=== PATIENT | female | born 1950 | race Caucasian/White ===

== ENCOUNTER → 2017-10-07 | Outpatient (CLI) | payer MEDICARE ==
--- NOTE | 2017-10-07 23:21 | MR ---
EXAMINATION TYPE: MR lumbar spine wo/w con DATE OF EXAM: 10/07/2017 COMPARISON: 06/27/2012 HISTORY: Radiculopathy, lumbar region, Pain Bilateral Legs, Gadavist 10ml TECHNIQUE: Multiplanar, multisequence images of the lumbar spine were acquired utilizing 10 mL intravenous Gadav ist gadolinium contrast. The lumbar vertebra have fairly normal spacing and alignment for age. There is a few millimeter anter ior subluxation of L4 in relation L5. There is mild hypertrophic facet arthropathy at L4-5. The neura l foramina appear normal. There is no spinal stenosis. There is no paraspinal mass. The posterior davy ments appear intact. Sacroiliac joints appear normal. I see no pathologic enhancement. There is small posterior disc bulge at L5-S1 without impingement on the spinal canal. IMPRESSION: Essentially negative MR scan of the lumbar spine. Minimal facet arthropathy at L4-5. I do not see a c ause for radiculopathy.
== END | disposition home or self-care (01) ==
LOC: RADMRIMAIN 17:19
PROVIDERS: ATTEND Psychiatry & Neurology Neurology
DX: M46.96 Unspecified inflammatory spondylopathy, lumbar region (principal)
CPT/HCPCS: 82565; 72158; 36415; A9581

== ENCOUNTER → 2020-01-04 | Outpatient (CLI) | payer MEDICARE ==
--- NOTE | 2020-01-05 08:56 | MM ---
Reason for exam: screening (asymptomatic). History: Patient is postmenopausal. Took hormonal contraceptives for 10 years. Physical Findings: A clinical breast exam by your physician is recommended on an annual basis and results should be correlated with mammographic findings. MG 3D Screening Mammo W/Cad Bilateral CC and MLO view(s) were taken. There are scattered fibroglandular densities. Finding: There are 3 mm equal density (isodense), oval masses in both breasts, right upper outer quadrant and left inner quadrant. Benign calcifications. ASSESSMENT: Incomplete: need additional imaging evaluation, BI-RAD 0 RECOMMENDATION: Ultrasound of both breasts. [facility] will attempt to contact patient to return for ultrasound.
== END | disposition home or self-care (01) ==
LOC: RADMAMWWP 09:40
PROVIDERS: ATTEND Family Medicine
DX: Z12.31 Encounter for screening mammogram for malignant neoplasm of breast (principal)
CPT/HCPCS: 77063; 77067

== ENCOUNTER → 2020-01-17 | Outpatient (CLI) | payer MEDICARE ==
--- NOTE | 2020-01-17 10:29 | USB ---
Reason for exam: additional evaluation requested from abnormal screening. History: Patient is postmenopausal. Took hormonal contraceptives for 10 years. Physical Findings: Nurse did not find any significant physical abnormalities on exam. US Breast Workup Limited GUILLERMO Right limited breast ultrasound including focal area of concern, retroareolar and axilla demonstrates a 3 x 2 x 3mm oval, cystic lesion at 10 o'clock. Left limited breast ultrasound including focal area of concern, retroareolar and axilla demonstrates a 3 x 2 x 3mm oval, cystic lesion at 8 o'clock. These results were verbally communicated with the patient and result sheet given to the patient on 01/17/20. ASSESSMENT: Benign, BI-RAD 2 RECOMMENDATION: Return to routine screening mammogram schedule for both breasts.
== END | disposition home or self-care (01) ==
LOC: RADUSWWP 09:31
PROVIDERS: ATTEND Family Medicine
DX: R92.8 Other abnormal and inconclusive findings on diagnostic imaging of breast (principal)

== ENCOUNTER → 2020-03-05 | Outpatient (CLI) | payer MEDICARE ==
--- NOTE | 2020-03-06 11:11 | ECHOF ---
Referral Reason:M79.89 soft tissue disorder MEASUREMENTS -------- HEIGHT: 160.0 cm WEIGHT: 102.1 kg BP: RVIDd: 3.2 cm (< 3.3) IVSd: 0.8 cm (0.6 - 1.1) LVIDd: 4.8 cm (3.9 - 5.3) LVPWd: 1.1 cm (0.6 - 1.1) IVSs: 1.1 cm LVIDs: 2.6 cm LVPWs: 1.6 cm LA Diam: 3.7 cm (2.7 - 3.8) LAESV Index (A-L): 21.53 ml/m Ao Diam: 2.4 cm (2.0 - 3.7) AV Cusp: 1.5 cm (1.5 - 2.6) LA Diam: 3.9 cm (2.7 - 3.8) MV EXCURSION: 9.371 mm (> 18.000) MV EF SLOPE: 63 mm/s (70 - 150) EPSS: 0.3 cm MV E Oleg: 0.65 m/s MV DecT: 209 ms MV A Oleg: 0.65 m/s MV E/A Ratio: 0.99 RAP: 5.00 mmHg RVSP: 24.94 mmHg FINDINGS -------- Sinus rhythm. This was a technically good study. LV size, wall thickness and systolic function are normal, with an EF greater than 55%. The left erick tricular size is normal. The right ventricle is normal in size. The left atrial size is normal. The right atrial size is normal. The aortic valve is trileaflet, and appears structurally normal. No aortic stenosis or regurgitation. Mild mitral regurgitation is present. Mild tricuspid regurgitation present. Right ventricular systolic pressure is normal at < 35 mmHg. There is no pulmonic regurgitation present. The aortic root size is normal. There is no pericardial effusion. CONCLUSIONS -------- 1. LV size, wall thickness and systolic function are normal, with an EF greater than 55%. 2. The left ventricular size is normal. 3. The right ventricle is normal in size. 4. The left atrial size is normal. 5. The right atrial size is normal. 6. Mild mitral regurgitation is present. 7. Mild tricuspid regurgitation present. 8. There is no pulmonic regurgitation present. 9. The aortic root size is normal. 10. There is no pericardial effusion. CORRUGATOR SUPERVISOR: Ijeoma Soriano RDCS
== END | disposition home or self-care (01) ==
LOC: RADECHMAIN 13:35
PROVIDERS: ATTEND Nurse Practitioner Family
DX: I08.1 Rheumatic disorders of both mitral and tricuspid valves (principal)
CPT/HCPCS: 93306

== ENCOUNTER → 2022-10-22 | Outpatient (CLI) | payer MEDICARE | END | disposition home or self-care (01) | LOC: LABWHC1 10:19 | PROVIDERS: ATTEND Urology | DX: Z53.9 Procedure and treatment not carried out, unspecified reason (principal) ==

== ENCOUNTER 2022-10-29 08:01 | Day surgery (SDC) | payer MEDICARE ==
--- NOTE | 2022-10-28 19:02 | P.GSHP ---
History of Present Illness H&P Date: 10/28/22 Chief Complaint: Gross hematuria The patient is a 72-year-old white female with a history of urolithiasis 15 years ago. She experienced gross hematuria in August 2022. Computed tomography scan shows a 17 mm right renal pelvic calculus, with no hydronephrosis. This is presumed to be the source of the hematuria. She denies any prior history of UTIs. - Cardiovascular Cardiovascular: Reports high blood pressure - Genitourinary (Female) Genitourinary: Reports hematuria, Reports kidney stones, Denies dysuria, Denies flank pain Past Medical History Past Medical History: Atrial Fibrillation, Hyperlipidemia, Hypertension Additional Past Medical History / Comment(s): kidney stones History of Any Multi-Drug Resistant Organisms: None Reported Past Surgical History: Appendectomy, Back Surgery, Tubal Ligation Additional Past Surgical History / Comment(s): NASAL SURGERY, Past Anesthesia/Blood Transfusion Reactions: No Reported Reaction Additional Past Anesthesia/Blood Transfusion Reaction / Comment(s): no blood tx hx Smoking Status: Current every day smoker - Past Family History Mother Family Medical History: No Reported History Medications and Allergies Home Medications Medication Instructions Recorded Confirmed Type Acetaminophen Tab [Tylenol Tab] 650 mg PO Q6H PRN 02/19/16 10/26/22 History Apixaban [Eliquis] 5 mg PO BID 10/26/22 10/26/22 History Atorvastatin [Lipitor] 40 mg PO HS 10/26/22 10/26/22 History Calcium(Unk) 1 tab PO DAILY 10/26/22 10/26/22 History Metoprolol Tartrate 25 mg PO DAILY 10/26/22 10/26/22 History Valsartan/Hydrochlorothiazide 1 each PO DAILY 10/26/22 10/26/22 History [Valsartan-Hctz 320-25 mg Tab] Vit D(Unk) 1 tab PO DAILY 10/26/22 History Zinc(Unk) 1 tab PO DAILY 10/26/22 History Allergies Allergy/AdvReac Type Severity Reaction Status Date / Time azithromycin Allergy Swelling Verified 10/26/22 15:27 [From Zithromax Z-Maciel] Penicillins Allergy Swelling Verified 10/26/22 15:27 OF TONGUE Surgical - Exam - General well developed, well nourished, no distress - Respiratory normal respiratory effort - Abdomen Abdomen: soft, non tender, no guarding, no rigid, no rebound - Psychiatric oriented to time, oriented to person, oriented to place, speech is normal, memory intact Results - Imaging CT scan - abdomen: report reviewed, image reviewed Assessment and Plan Assessment: It is presumed that the renal pelvic calculus is the source of the patient's hematuria. She was offered the options of observation, extracorporal shockwave lithotripsy (ESWL), percutaneous nephrolithotomy (PCNL), and ureteroscopy with laser lithotripsy. The pros, cons, and risks of each were discussed in detail. (1) Calculus of kidney Status: Acute Code(s): N20.0 - CALCULUS OF KIDNEY SNOMED Code(s): 53049516 Plan: The patient has elected to undergo cystoscopy, right ureteroscopy with holmium laser lithotripsy, right ureteral stent insertion. She is aware that she will almost certainly require a secondary procedure given the stone burden. She understands risks to include anesthesia, bleeding, infection, and ureteral injury.
[~2022-10-29 08:01] MED LIST: DEXAMETHASONE SOD PHOSPHATE 4 MG/ML 1 ML VIAL IV ONE; HYDROmorphone 0.5 MG/0.5 ML SYRINGE IVP PRN; LACTATED RINGERS 1,000 ML IV SCH; ONDANSETRON 4 MG/2 ML VIAL IVP ONE
[2022-10-29 08:39] VITALS: TEMP 97.3
[2022-10-29 09:02] LABS: Glucose,Whole Blood 125 mg/dL (70-110)
--- NOTE | 2022-10-29 09:10 | XR ---
EXAMINATION TYPE: XR KUB DATE OF EXAM: 10/29/2022 COMPARISON: NONE HISTORY: Pain TECHNIQUE: One view abdominal series FINDINGS: The osseous structures are intact. The bowel gas pattern is nonspecific. Left kidney: No suspicious calcification. Right kidney: There is a 1.9 cm right renal pelvic calcification. Pelvis: Calcifications in the pelvis are nonspecific but likely vascular. There is osteitis pubis exa ms. Atherosclerotic change aorta and degenerative changes. IMPRESSION: 1. There is a 1.9 cm right renal pelvic calculus.
[2022-10-29] MEDS ORDERED: LIDOCAINE 2% INJ 20 MG/ML (2 ML VIAL) ONE (12:02)
[2022-10-29] MEDS ORDERED: PROPOFOL 10 MG/ML 20 ML VIAL IV ONE (12:02)
[2022-10-29] MEDS ORDERED: fentaNYL (PF) 50 MCG/ML 2 ML AMP ONE (12:02)
[2022-10-29] MEDS ORDERED: MIDAZOLAM 2 MG/2 ML VIAL ONE (12:02)
[2022-10-29] MEDS ORDERED: SUCCINYLCHOLINE CHLORIDE 200 MG/10 ML VIAL IV ONE (12:02)
--- NOTE | 2022-10-29 13:45 | FL ---
EXAMINATION TYPE: FL guidance operating room DATE OF EXAM: 10/29/2022 HISTORY: Fluoroscopy time Total dose area product (DAP) in uGy*m?, mGy*cm? (or similar): 4.1946 IMPRESSION: 1. Fluoroscopy time.
[2022-10-29 15:04] VITALS: RESP 18
[2022-10-29 15:26] VITALS: PULSE 55
[2022-10-29 15:27] VITALS: BP 163/75
--- NOTE | 2022-10-29 22:11 | P.OP ---
Date of Procedure: 10/29/22 Preoperative Diagnosis: Right renal calculus Postoperative Diagnosis: Same Procedure(s) Performed: Cystoscopy, right ureteroscopy with Holmium laser lithotripsy, right ureteral stent insertion Anesthesia: SOPHIEA Surgeon: Jose Carlos Brooke Estimated Blood Loss (ml): 10 IV fluids (ml): 600 Pathology: none sent Condition: stable Disposition: PACU Indications for Procedure: The patient is a 72-year-old white female with a history of urolithiasis 15 years ago. She experienced gross hematuria in August 2022. CT scan shows a 17 mm right renal pelvic calculus, with no hydronephrosis. This is presumed to be the source of the hematuria. She denies any prior history of UTIs. Operative Findings: Right renal pelvic calculus, fragmented completely. Description of Procedure: The patient was taken to the operating room and placed in the dorsolithotomy position, with legs supported in Ulysses stirrups. The external genitalia was prepped and draped sterilely. The 30 lens was used to introduce the 21-Guyanese Lawson cystoscopic sheath through the urethra and into the bladder under direct vision. The bladder was examined in its entirety. Both ureteral orifices were normal anatomic location and configuration, and clear urine effluxed from both. No tumors or foreign bodies were seen. A 0.038 inch Glidewire was passed through the cystoscope. The ureteral orifice was cannulated, and the Glidewire was advanced up to the renal pelvis. The cystoscope was removed, and an 11/13- Guyanese ureteral access catheter was passed over the wire, up to the proximal ureter. The Gipson Cobra flexible ureteroscope was then passed through the ureteral access catheter sheath, up to the renal pelvis where the calculus was seen. The 272 micron Holmium laser probe was passed through the ureteroscope, and lithotripsy was performed using a dusting mode. This was continued until there were no calculus fragments exceeding 1 mm in size, and none seen on fluoroscopy. The ureteroscope was withdrawn. The Glidewire was passed through the ureteral access catheter sheath, which was removed. The Glidewire was backloaded into the cystoscope, which was replaced into the bladder. A 22 cm, 6-Guyanese double-J ureteral stent was placed over the wire. Proper stent positioning was verified fluoroscopically and endoscopically. The bladder was emptied and the cystoscope removed. The patient tolerated the procedure well and was taken to the recovery room in stable condition. DAVID HI Report: Procedure Acuity: Elective Stone Size and Location: 17 mm, right renal pelvis Ureteral Dilation: No Ureteral Access Sheath Used: Yes Stone Sent for Analysis: No All Stones/Fragments Were Removed with a Basket: No Complications: No Preoperative Antibiotics Given: Yes Stent Placed: Yes If Stent Placed, Was String Left Attached: No If Stent Placed, When is it to be Removed: 2 weeks Discharge Medications: Tolterodine
== END 2022-10-29 15:35 | disposition home or self-care (01) ==
LOC: OR 08:01
PROVIDERS: ATTEND Urology
DX: N20.0 Calculus of kidney (principal); I48.91 Unspecified atrial fibrillation; I10 Essential (primary) hypertension; E78.5 Hyperlipidemia, unspecified; F17.210 Nicotine dependence, cigarettes, uncomplicated; K21.9 Gastro-esophageal reflux disease without esophagitis; Z79.01 Long term (current) use of anticoagulants; Z79.899 Other long term (current) drug therapy; Z88.0 Allergy status to penicillin; Z88.1 Allergy status to other antibiotic agents
CPT/HCPCS: 74018; 52356; C1758 ×3; C1769; C1894; J2250; J0330; J1100; J0690; J2405; J3010; J2704; J2001

== ENCOUNTER 2022-10-31 10:43 | Inpatient (IN) | payer MEDICARE ==
[2022-10-31] MEDS ORDERED: SODIUM CHLORIDE 0.9% 500 ML 500 ML IV STA (11:58)
[2022-10-31] MEDS ORDERED: DILTIAZEM DRIP BOLUS FROM BAG 1 MG SOLN IV ONE (11:59)
--- NOTE | 2022-10-31 12:04 | ED ---
General Adult HPI - General Chief complaint: Arrhythmia/Palpitations Stated complaint: post op comp Time Seen by Provider: 10/31/22 11:10 Source: patient, RN notes reviewed, old records reviewed Mode of arrival: wheelchair Limitations: no limitations - History of Present Illness Initial comments: This is a 72-year-old m female nick presents emergency Department complaining that she has a history of atrial fibrillation and felt as though her heart is ra cing today. Patient states recently she had a stone lithotripsy and she's been having some back pain and some slight abdominal pain and she states that may have got her heart rate racing but now she is comfortable and still has a little bit of suprapubic discomfort but not bad. Patient states she feels as though her heart still racing and she was somewhat short of breath earlier today. Patient denies any chest pain patient denies any recent fever chills. Patient denies any lightheadedness or dizziness - Related Data Home Medications Medication Instructions Recorded Confirmed Acetaminophen Tab [Tylenol Tab] 650 mg PO Q6H PRN 02/19/16 10/29/22 Apixaban [Eliquis] 5 mg PO BID 10/26/22 10/29/22 Atorvastatin [Lipitor] 40 mg PO HS 10/26/22 10/29/22 Calcium(Unk) 1 tab PO DAILY 10/26/22 10/29/22 Metoprolol Tartrate 25 mg PO DAILY 10/26/22 10/29/22 Valsartan/Hydrochlorothiazide 1 each PO DAILY 10/26/22 10/29/22 [Valsartan-Hctz 320-25 mg Tab] Vit D(Unk) 1 tab PO DAILY 10/26/22 10/29/22 Zinc(Unk) 1 tab PO DAILY 10/26/22 10/29/22 Previous Rx's Medication Instructions Recorded Tolterodine ER [Detrol LA] 4 mg PO DAILY #30 cap 10/29/22 Allergies Allergy/AdvReac Type Severity Reaction Status Date / Time azithromycin Allergy Swelling Verified 10/29/22 08:27 [From Zithromax Z-Maciel] Penicillins Allergy Swelling Verified 10/29/22 08:27 OF TONGUE Review of Systems ROS Statement: Those systems with pertinent positive or pertinent negative responses have been documented in the HPI. ROS Other: All systems not noted in ROS Statement are negative. Past Medical History Past Medical History: Atrial Fibrillation, Hyperlipidemia, Hypertension Additional Past Medical History / Comment(s): kidney stones History of Any Multi-Drug Resistant Organisms: None Reported Past Surgical History: Appendectomy, Back Surgery, Tubal Ligation Additional Past Surgical History / Comment(s): NASAL SURGERY, Past Anesthesia/Blood Transfusion Reactions: No Reported Reaction Past Psychological History: No Psychological Hx Reported Past Alcohol Use History: Rare Past Drug Use History: None Reported - Past Family History Mother Family Medical History: No Reported History General Exam - General Exam Comments Initial Comments: GENERAL: Patient is well-developed and well-nourished. Patient is nontoxic and well- hydrated and is in mild distress. ENT: Neck is soft and supple. No significant lymphadenopathy is noted. Oropharynx is clear. Moist mucous membranes. Neck has full range of motion without eliciting any pain. EYES: The sclera were anicteric and conjunctiva were pink and moist. Extraocular movements were intact and pupils were equal round and reactive to light. Eyelids were unremarkable. PULMONARY: Unlabored respirations. Good breath sounds bilaterally. No audible rales rhonchi or wheezing was noted. CARDIOVASCULAR: Patient is tachycardic to 140 beats a minute and it is a regular ABDOMEN: Soft and nontender with normal bowel sounds. SKIN: Skin is clear with no lesions or rashes and otherwise unremarkable. NEUROLOGIC: Patient is alert and oriented x3. Cranial nerves II through XII are grossly intact. Motor and sensory are also intact. Normal speech, volume and content. Symmetrical smile. MUSCULOSKELETAL: Normal extremities with adequate strength and full range of motion. LYMPHATICS: No significant lymphadenopathy is noted PSYCHIATRIC: Normal psychiatric evaluation. Limitations: no limitations Course Vital Signs 10/31/22 10/31/22 11:09 13:05 Temperature 97.8 F Pulse Rate 139 H 128 H Respiratory 20 20 Rate Blood Pressure 139/96 100/58 O2 Sat by Pulse 95 99 Oximetry Medical Decision Making - Medical Decision Making EKG as interpreted by myself shows atrial fibrillation with rapid ventricular response at 135 bpm QRS is 90 QT interval is 281 QTC is 360. Patient's EKG shows no ST segment elevation or depression. Was pt. sent in by a medical professional or institution (, PA, OWNER PROFESSIONAL ENGINEER, urgent care, hospital, or longterm...) When possible be specific @ -No Did you speak to anyone other than the patient for history (EMS, parent, family, police, friend...)? What history was obtained from this source @ -No Did you review nursing and triage notes (agree or disagree)? Why? @ -I reviewed and agree with nursing and triage notes Were old charts reviewed (outside hosp., previous admission, EMS record, old EKG, old radiological studies, urgent care reports/EKG's, longterm records)? Report findings @ -Prior lab work from prior radiological studies Differential Diagnosis (chest pain, altered mental status, abdominal pain women, abdominal pain men, vaginal bleeding, weakness, fever, dyspnea, syncope, headache, dizziness, GI bleed, back pain, seizure, CVA, palpatations, mental health, musculoskeletal)? @ -Differential Palpitations Ventricular arrhythmias, atrial arrhythmias, myocardial infarction, anemia, thyrotoxicosis, electrolyte imbalance, hypokalemia, pulmonary embolism, pulmonary disease, drugs, alcohol, anxiety, stress.... This is not meant to be an all-inclusive list. EKG interpreted by me (3pts min.). @ -As above X-rays interpreted by me (1pt min.). @ -Chest x-ray shows no acute abnormality CT interpreted by me (1pt min.). @ -None done U/S interpreted by me (1pt. min.). @ -None done What testing was considered but not performed or refused? (CT, X-rays, U/S, labs)? Why? @ -None What meds were considered but not given or refused? Why? @ -None Did you discuss the management of the patient with other professionals (professionals i.e. , PA, OWNER PROFESSIONAL ENGINEER, lab, RT, psych nurse, social media specialist, polymer specialist, teacher, chief innovation officer, home health care case manager)? Give summary @ -[facility] I spoke with Dr. Brooke and he agreed to be on consult for this patient. Was smoking cessation discussed for >3mins.? @ -No Was critical care preformed (if so, how long)? @ -35 minutes Were there social determinants of health that impacted care today? How? (Homelessness, low income, unemployed, alcoholism, drug addiction, tr ansportation, low edu. Level, literacy, decrease access to med. care, assisted, rehab)? @ -No Was there de-escalation of care discussed even if they declined (Discuss DNR or withdrawal of care, Hospice)? DNR status @ -No What co-morbidities impacted this encounter? (DM, HTN, Smoking, COPD, CAD, Cancer, CVA, ARF, Chemo, Hep., AIDS, mental health diagnosis, sleep apnea, morbid obesity)? @ -None Was patient admitted / discharged? Hospital course, mention meds given and route, prescriptions, significant lab abnormalities, going to OR and other pertinent info. @ -Because the patient had a high white count and a recent procedure started the patient on Levaquin Dr. Brooke is in agreement with that. Patient was in A. fib RVR so I started the patient a Cardizem and she was ordered at all it was no blood thinners due to be added. At this point time I spoke with [facility] see agreed to admit the patient admitted the patient wrote admitting orders Undiagnosed new problem with uncertain prognosis? @ -No Drug Therapy requiring intensive monitoring for toxicity (Heparin, Nitro, Insulin, Cardizem)? @ -No Were any procedures done? @ -No Diagnosis/symptom? @ -A. fib with rapid ventricular response Acute, or Chronic, or Acute on Chronic? @ -Acute Uncomplicated (without systemic symptoms) or Complicated (systemic symptoms)? @ -Complicated Side effects of treatment? @ -No Exacerbation, Progression, or Severe Exacerbation? @ -No Poses a threat to life or bodily function? How? (Chest pain, [place], [place], pneumonia, PE, COPD, DKA, ARF, appy, cholecystitis, CVA, Diverticulitis, Homicidal, Suicidal, threat to staff... and all critical care pts) @ -Yes this could lead to poor perfusion and end organ dysfunction Diagnosis/symptom? @ -Urinary tract infection post procedure Acute, or Chronic, or Acute on Chronic? @ -Acute Uncomplicated (without systemic symptoms) or Complicated (systemic symptoms)? @ -Complicated Side effects of treatment? @ -none Exacerbation, Progression, or Severe Exacerbation] @ -No Poses a threat to life or bodily function? @ -Yes This could lead to sepsis and could lead to morbidity or mortality - Lab Data Result diagrams: 10/31/22 12:01 10/31/22 12:01 Lab Results 10/31/22 10/31/22 10/31/22 Range/Units 12:01 12:01 12:01 WBC 19.4 H (3.8-10.6) k/uL RBC 4.78 (3.80-5.40) m/uL Hgb 13.5 (11.4-16.0) gm/dL Hct 40.7 (34.0-46.0) % MCV 85.1 (80.0-100.0) fL MCH 28.2 (25.0-35.0) pg MCHC 33.1 (31.0-37.0) g/dL RDW 14.0 (11.5-15.5) % Plt Count 173 (150-450) k/uL MPV 11.0 Neutrophils % 89 % Lymphocytes % 3 % Monocytes % 6 % Eosinophils % 0 % Basophils % 0 % Neutrophils # 17.4 H (1.3-7.7) k/uL Lymphocytes # 0.6 L (1.0-4.8) k/uL Monocytes # 1.2 H (0-1.0) k/uL Eosinophils # 0.0 (0-0.7) k/uL Basophils # 0.0 (0-0.2) k/uL PT 10.8 (9.0-12.0) sec INR 1.0 (<1.2) APTT 25.1 (22.0-30.0) sec Sodium 134 L (137-145) mmol/L Potassium 4.0 (3.5-5.1) mmol/L Chloride 103 (98-107) mmol/L Carbon Dioxide 21 L (22-30) mmol/L Anion Gap 10 mmol/L BUN 20 H (7-17) mg/dL Creatinine 0.86 (0.52-1.04) mg/dL Est GFR (CKD-EPI)AfAm 80 (>60 ml/min/1.73 sqM) Est GFR (CKD-EPI)NonAf 69 (>60 ml/min/1.73 sqM) Glucose 157 H (74-99) mg/dL Calcium 8.8 (8.4-10.2) mg/dL Magnesium 1.8 (1.6-2.3) mg/dL Total Bilirubin 1.3 (0.2-1.3) mg/dL AST 34 (14-36) U/L ALT 23 (4-34) U/L Alkaline Phosphatase 83 (38-126) U/L Troponin I (0.000-0.034) ng/mL Total Protein 6.3 (6.3-8.2) g/dL Albumin 3.7 (3.5-5.0) g/dL TSH 1.350 (0.465-4.680) mIU/L Urine Appearance (Clear) Urine RBC (0-5) /hpf Urine WBC (0-5) /hpf 10/31/22 10/31/22 Range/Units 12:01 13:28 WBC (3.8-10.6) k/uL RBC (3.80-5.40) m/uL Hgb (11.4-16.0) gm/dL Hct (34.0-46.0) % MCV (80.0-100.0) fL MCH (25.0-35.0) pg MCHC (31.0-37.0) g/dL RDW (11.5-15.5) % Plt Count (150-450) k/uL MPV Neutrophils % % Lymphocytes % % Monocytes % % Eosinophils % % Basophils % % Neutrophils # (1.3-7.7) k/uL Lymphocytes # (1.0-4.8) k/uL Monocytes # (0-1.0) k/uL Eosinophils # (0-0.7) k/uL Basophils # (0-0.2) k/uL PT (9.0-12.0) sec INR (<1.2) APTT (22.0-30.0) sec Sodium (137-145) mmol/L Potassium (3.5-5.1) mmol/L Chloride (98-107) mmol/L Carbon Dioxide (22-30) mmol/L Anion Gap mmol/L BUN (7-17) mg/dL Creatinine (0.52-1.04) mg/dL Est GFR (CKD-EPI)AfAm (>60 ml/min/1.73 sqM) Est GFR (CKD-EPI)NonAf (>60 ml/min/1.73 sqM) Glucose (74-99) mg/dL Calcium (8.4-10.2) mg/dL Magnesium (1.6-2.3) mg/dL Total Bilirubin (0.2-1.3) mg/dL AST (14-36) U/L ALT (4-34) U/L Alkaline Phosphatase (38-126) U/L Troponin I <0.012 (0.000-0.034) ng/mL Total Protein (6.3-8.2) g/dL Albumin (3.5-5.0) g/dL TSH (0.465-4.680) mIU/L Urine Appearance Bloody H (Clear) Urine RBC >182 H (0-5) /hpf Urine WBC 87 H (0-5) /hpf Disposition Clinical Impression: Urinary tract infection, Atrial fibrillation with rapid ventricular response Disposition: ADMITTED IP TO THIS HOSP Referrals: Oliver Roper MD [Primary Care Provider] - 1-2 days Time of Disposition: 14:13
[2022-10-31] MEDS: DILTIAZEM 125 MG in SODIUM CHLORIDE 0.9% 100 ML IV SCH ×2 (12:10→12:11)
[2022-10-31 12:18] LABS: Basophils % (A) 0 %; Eosinophils % (A) 0 %; HCT 40.7 % (34.0-46.0); HGB 13.5 gm/dL (11.4-16.0); Lymphocytes # (A) 0.6 k/uL (1.0-4.8); Lymphocytes % (A) 3 %; MCH 28.2 pg (25.0-35.0); MCHC 33.1 g/dL (31.0-37.0); MCV 85.1 fL (80.0-100.0); Monocytes # (A) 1.2 k/uL (0-1.0); Monocytes % (A) 6 %; Neutrophils # (A) 17.4 k/uL (1.3-7.7); Neutrophils % (A) 89 %; Platelet Count 173 k/uL (150-450); RBC 4.78 m/uL (3.80-5.40); WBC 19.4 k/uL (3.8-10.6)
[2022-10-31 12:27] LABS: ALT 23 U/L (4-34); AST 34 U/L (14-36); African American GFR (CKD) 80 (>60 ml/min/1.73 sqM); Albumin 3.7 g/dL (3.5-5.0); Alkaline Phosphatase 83 U/L (38-126); Anion Gap 10 mmol/L; Blood Urea Nitrogen 20 mg/dL (7-17); Calcium 8.8 mg/dL (8.4-10.2); Carbon Dioxide 21 mmol/L (22-30); Chloride 103 mmol/L (98-107); Glucose 157 mg/dL (74-99); Magnesium 1.8 mg/dL (1.6-2.3); Non-African American GFR(CKD) 69 (>60 ml/min/1.73 sqM); Sodium 134 mmol/L (137-145); Total Bilirubin 1.3 mg/dL (0.2-1.3); Total Protein 6.3 g/dL (6.3-8.2)
[2022-10-31 12:31] LABS: Partial Thromboplastin Time 25.1 sec (22.0-30.0); Prothrombin Time 10.8 sec (9.0-12.0)
--- NOTE | 2022-10-31 12:38 | XR ---
EXAMINATION TYPE: XR chest 2V DATE OF EXAM: 10/31/2022 12:28 PM COMPARISON: Chest radiographs from 07/04/2012 TECHNIQUE: XR chest 2V Frontal and lateral views of the chest. CLINICAL INDICATION:Female, 72 years old with history of dysrhythmia; FINDINGS: Lungs/Pleura: There is no evidence of pleural effusion, focal consolidation, or pneumothorax. Pulmonary vascularity: Pulmonary vascular congestion. Heart/mediastinum: Cardiomediastinal silhouette is unremarkable. Musculoskeletal: No acute osseous pathology. IMPRESSION: Mild pulmonary vascular congestion.
[2022-10-31 13:57] LABS: RBC,Urine >182 /hpf (0-5); WBC,Urine 87 /hpf (0-5)
[2022-10-31 13:58] LABS: Appearance,Urine Bloody (Clear)
[2022-10-31] MEDS ORDERED: LEVOFLOXACIN 750MG-D5W PMX 750 MG in DEXTROSE/WATER 1 150ML.BAG IVPB STA (14:00)
[2022-10-31] MEDS ORDERED: NITROGLYCERIN SL TABS 0.4 MG TAB SUBLINGUAL PRN (14:14)
--- NOTE | 2022-10-31 15:31 | XR ---
EXAMINATION TYPE: XR KUB DATE OF EXAM: 10/31/2022 3:03 PM INDICATION: Patient age:Female; 72 years old; Reason for study: Kidney stone; COMPARISON: Fluoroscopy 10/29/2022. TECHNIQUE: One radiographic view of the abdomen was obtained. FINDINGS: Right ureteral stent has migraine with pigtail now straightened when compared to 10/29/2022 fluoroscopy. Nonobstructive bowel gas pattern. Multilevel degeneration changes. IMPRESSION: Right ureteral stent has migraine with pigtail now straightened when compared to 10/29/2022 fluoroscop y.
[2022-10-31] MEDS: APIXABAN 5 MG TAB PO SCH (21:47)
[2022-10-31] MEDS: ATORVASTATIN 40 MG TAB PO SCH (21:47)
[2022-11-01] MEDS: ACETAMINOPHEN TAB 325 MG TAB PO PRN ×3 (00:48→23:22)
--- NOTE | 2022-11-01 01:11 | P.HPIM ---
History of Present Illness H&P Date: 10/31/22 Chief Complaint: Heart racing up fast Patient is a 72-year-old female with a known history of cystoscopy right ureteroscopy with laser lithotripsy and right ureteral stent placement on 10/29/2022, paroxysmal atrial fibrillation on anticoagulation with Eliquis, hypertension, hyperlipidemia presents to ER with complaints of heart racing or fast today. Patient did take her medications and waited for about 2 and half hours and her symptoms not getting better. Patient presented to ER for evaluation. Patient is also mildly short of breath. No complaints of fever or chills. No chest pain. No leg swelling. Denies any dizziness or lightheadedness. Patient is also complaining of suprapubic discomfort and otherwise denies any fever or chills. Denies any dysuria. Patient noted to have blood in the urine. Chest x-ray showed mild pulmonary vascular congestion. EKG showed atrial fibrillation tach ventricular rate with heart rate 135 KUB x-ray showed right ureteral stent, straightening when compared to 10/29/2022 fluoroscopy. Laboratory data showed WBC 19.4 hemoglobin 13.5 and platelets 173 Sodium 134 potassium 4.0 chloride 103 bicarb is 21 BUN 20 and creatinine 0.86 and blood sugar is 157 Troponin x3 negative No new onset elevated TSH level is 1.350 Urinalysis showed bloody with greater than 180 RBCs and WBCs. Review of Systems Constitutional: Patient denies any fever or chills . no Generalized weakness. Abdomen: Patient denied any nausea or vomiting. Suprapubic abdominal discomfort. Cardiovascular: Patient denies any chest pain. Mild short of breath. Palpitations. No leg swelling. Respiratory: patient denied any cough . no sputum production. No shortness of breath Neurologic: Patient denied any numbness or tingling headache. Musculoskeletal: Patient denies any complaints of joint swelling or deformity. Skin: Negative Psychiatric: Negative Endocrine: No heat or cold intolerance. No recent weight gain. Genitourinary: No dysuria. No blood in the urine. All other 14 point ROS negative except the above Past Medical History Past Medical History: Atrial Fibrillation, Hyperlipidemia, Hypertension Additional Past Medical History / Comment(s): kidney stones History of Any Multi-Drug Resistant Organisms: None Reported Past Surgical History: Appendectomy, Back Surgery, Tubal Ligation Additional Past Surgical History / Comment(s): NASAL SURGERY, Past Anesthesia/Blood Transfusion Reactions: No Reported Reaction Past Psychological History: No Psychological Hx Reported Past Alcohol Use History: Rare Past Drug Use History: None Reported - Past Family History Mother Family Medical History: No Reported History Medications and Allergies Home Medications Medication Instructions Recorded Confirmed Type Acetaminophen Tab [Tylenol Tab] 650 mg PO Q6H PRN 02/19/16 10/31/22 History Apixaban [Eliquis] 5 mg PO BID 10/26/22 10/31/22 History Atorvastatin [Lipitor] 40 mg PO HS 10/26/22 10/31/22 History Calcium(Unk) 1 tab PO DAILY 10/26/22 10/31/22 History Metoprolol Tartrate 25 mg PO DAILY 10/26/22 10/31/22 History Valsartan/Hydrochlorothiazide 1 tab PO DAILY 10/26/22 10/31/22 History [Valsartan-Hctz 320-25 mg Tab] Vit D(Unk) 1 tab PO DAILY 10/26/22 10/31/22 History Zinc(Unk) 1 tab PO DAILY 10/26/22 10/31/22 History Tolterodine ER [Detrol LA] 4 mg PO DAILY #30 cap 10/29/22 10/31/22 Rx Allergies Allergy/AdvReac Type Severity Reaction Status Date / Time azithromycin Allergy Swelling Verified 10/31/22 15:23 [From Zithromax Z-Maciel] Penicillins Allergy Swelling Verified 10/31/22 15:23 OF TONGUE Physical Exam Vitals: Vital Signs Temp Pulse Resp BP Pulse Ox 10/31/22 15:08 98.4 F 132 H 20 102/69 99 10/31/22 14:35 112 H 20 107/65 99 10/31/22 13:05 128 H 20 100/58 99 10/31/22 11:09 97.8 F 139 H 20 139/96 95 Intake and Output 10/31/22 10/31/22 10/31/22 06:59 14:59 22:59 Intake Total 0.083 Output Total 136 Balance -135.917 Intake: Intake, IV Titration 0.083 Amount Diltiazem 125 mg In 0.083 Sodium Chloride 0.9% 100 ml @ 5 MG/HR 5 mls/hr IV .Q24H [facility] Rx#:[id number] Output: Post Void Residual 136 Other: Weight 97.069 kg PHYSICAL EXAMINATION: Patient is lying in the bed comfortably, no acute distress, awake alert and oriented.. HEENT: Normocephalic. Neck is supple. Pupils reactive. Nostrils clear. Oral cavity is moist. Neck reveals no JVD, carotid bruits, or thyromegaly. CHEST EXAMINATION: Trachea is central. Symmetrical expansion. Lung delgado clear to auscultation and percussion. CARDIAC: Normal S1, S2 with no gallops. No murmurs. Irregularly irregular rhythm. ABDOMEN: Soft. Bowel sounds present. Nontender. No organomegaly. No abdominal bruits. Extremities: reveal no edema. No clubbing or cyanosis Neurologically awake, alert, oriented x3 with well-coordinated movements. No focal deficits noted Skin: No rash or skin lesions. Psychiatric: Coperative. Nonsuicidal, Musculoskeletal: No joint swelling or deformity. Normal range of motion.. Results CBC & Chem 7: 10/31/22 12:01 10/31/22 12:01 Labs: Abnormal Lab Results - Last 24 Hours (Table) 10/31/22 10/31/22 10/31/22 Range/Units 12:01 12:01 13:28 WBC 19.4 H (3.8-10.6) k/uL Neutrophils # 17.4 H (1.3-7.7) k/uL Lymphocytes # 0.6 L (1.0-4.8) k/uL Monocytes # 1.2 H (0-1.0) k/uL Sodium 134 L (137-145) mmol/L Carbon Dioxide 21 L (22-30) mmol/L BUN 20 H (7-17) mg/dL Glucose 157 H (74-99) mg/dL Urine Appearance Bloody H (Clear) Urine RBC >182 H (0-5) /hpf Urine WBC 87 H (0-5) /hpf Thrombosis Risk Factor Assmnt - DVT/VTE Prophylaxis DVT/VTE Prophylaxis: Pharmacologic Prophylaxis ordered Assessment and Plan Assessment: Paroxysmal atrial fibrillation with rapid ventricular rate Right ureteroscopy with laser lithotripsy and right ureteral stent placement on 10/29/2022 Suprapubic abdominal discomfort. Hypertension Hyperlipidemia DVT prophylaxis. Patient is already on Eliquis. Plan: Continue telemetry monitoring. Started on Cardizem drip and also will be continued on metoprolol. Patient was given IV hydration and IV Levaquin in the ER. Continue with antibiotics, ceftriaxone 1 g daily. Follow-up urine culture report. Cardiology and urology was consulted for evaluation. Follow-up closely. Pain management. Time with Patient: Greater than 30
[2022-11-01] MEDS: METOPROLOL TARTRATE 25 MG TAB PO SCH ×3 (06:16→21:19)
[2022-11-01 07:48] LABS: Basophils % (A) 0 %; Eosinophils % (A) 0 %; HCT 36.6 % (34.0-46.0); HGB 12.2 gm/dL (11.4-16.0); Lymphocytes % (A) 8 %; MCH 28.9 pg (25.0-35.0); MCHC 33.4 g/dL (31.0-37.0); MCV 86.6 fL (80.0-100.0); Mean Platelet Volume 10.5; Monocytes # (A) 1.2 k/uL (0-1.0); Monocytes % (A) 9 %; Neutrophils # (A) 10.6 k/uL (1.3-7.7); Neutrophils % (A) 82 %; Platelet Count 144 k/uL (150-450); RBC 4.22 m/uL (3.80-5.40); RDW 13.9 % (11.5-15.5); WBC 13.1 k/uL (3.8-10.6)
[2022-11-01 08:16] LABS: African American GFR (CKD) 55 (>60 ml/min/1.73 sqM); Anion Gap 6 mmol/L; Blood Urea Nitrogen 21 mg/dL (7-17); Calcium 8.2 mg/dL (8.4-10.2); Carbon Dioxide 26 mmol/L (22-30); Chloride 102 mmol/L (98-107); Glucose 118 mg/dL (74-99); Non-African American GFR(CKD) 47 (>60 ml/min/1.73 sqM); Potassium 3.5 mmol/L (3.5-5.1); Sodium 134 mmol/L (137-145)
[2022-11-01] MEDS: APIXABAN 5 MG TAB PO SCH (08:37)
[2022-11-01] MEDS: OXYBUTYNIN 10 MG TAB.ER.24 PO SCH (08:44)
[2022-11-01] MEDS ORDERED: ASPIRIN 325 MG TAB PO SCH (09:00)
--- NOTE | 2022-11-01 09:28 | P.CRDCN ---
History of Present Illness Consult date: 11/01/22 Chief complaint: Heart racing History of present illness: The patient is a 72-year-old female patient with a past medical history significant for hypertension and dyslipidemia and paroxysmal atrial fibrillation presented to the hospital complaining of heart racing and fluttering. On October 30 she underwent cystoscopy with right ureteral stent insertion and lithotripsy therapy. 2 days after she was in her usual state of health until she started experiencing symptoms of heart racing and fluttering associated with dizziness unlike in this but no presyncope or syncope and no symptoms of chest pain or chest discomfort or shortness of breath. She presented to the hospital where an EKG was performed and showed atrial fibrillation with RVR. Subsequently the patient was converted to normal sinus mechanism. She was receiving at home metoprolol tartrate and she stated that she has been compliant with the medication and also she has been compliant with oral anticoagulation. The workup during this admission showed UTI and currently the patient is on antibiotic. Also she has been experiencing symptoms of hematuria. For some reason anti-she is on aspirin 325 mg by mouth daily. The first EKG showed A. fib with RVR and the second EKG showed normal sinus mechanism and the patient has been maintaining normal sinus mechanism. When she presented to the hospital her pressure has been elevated and consistent with hypertension crisis. She stated that she has been compliant with her valsartan as well. The examination is remarkable for regular rhythm with clear breathing sounds bilaterally and no lower extremity edema noted. The abdomen is soft and nontender Assessment Status post lithotripsy for kidney stone along with cystoscopy and right ureteral stent insertion Hematuria. Likely to be triggered by the urinary procedure Atrial fibrillation with RVR. The patient converted to normal sinus mechanism. The patient is known to have paroxysmal atrial fibrillation for Hypertension emergency Plan DC aspirin Decrease the dose of her course at this point Increase the dose of beta eliza with metoprolol Restart the patient back on the home blood pressure medication including valsartan Obtain an echocardiogram was Doppler Follow-up with the patient Past Medical History Past Medical History: Atrial Fibrillation, Hyperlipidemia, Hypertension Additional Past Medical History / Comment(s): kidney stones History of Any Multi-Drug Resistant Organisms: None Reported Past Surgical History: Appendectomy, Back Surgery, Tubal Ligation Additional Past Surgical History / Comment(s): NASAL SURGERY, Past Anesthesia/Blood Transfusion Reactions: No Reported Reaction Past Psychological History: No Psychological Hx Reported Past Alcohol Use History: Rare Past Drug Use History: None Reported - Past Family History Mother Family Medical History: No Reported History Medications and Allergies Home Medications Medication Instructions Recorded Confirmed Type Acetaminophen Tab [Tylenol Tab] 650 mg PO Q6H PRN 02/19/16 10/31/22 History Apixaban [Eliquis] 5 mg PO BID 10/26/22 10/31/22 History Atorvastatin [Lipitor] 40 mg PO HS 10/26/22 10/31/22 History Calcium(Unk) 1 tab PO DAILY 10/26/22 10/31/22 History Metoprolol Tartrate 25 mg PO DAILY 10/26/22 10/31/22 History Valsartan/Hydrochlorothiazide 1 tab PO DAILY 10/26/22 10/31/22 History [Valsartan-Hctz 320-25 mg Tab] Vit D(Unk) 1 tab PO DAILY 10/26/22 10/31/22 History Zinc(Unk) 1 tab PO DAILY 10/26/22 10/31/22 History Tolterodine ER [Detrol LA] 4 mg PO DAILY #30 cap 10/29/22 10/31/22 Rx Allergies Allergy/AdvReac Type Severity Reaction Status Date / Time azithromycin Allergy Swelling Verified 10/31/22 15:23 [From Zithromax Z-Maciel] Penicillins Allergy Swelling Verified 10/31/22 15:23 OF TONGUE Physical Exam Vitals: Vital Signs Temp Pulse Pulse Resp BP BP Pulse Ox 11/01/22 08:21 98.0 F 11/01/22 08:00 75 16 190/86 95 11/01/22 04:00 97.6 F 61 20 136/80 94 L 11/01/22 01:06 64 18 11/01/22 00:00 98.1 F 64 20 133/76 95 10/31/22 20:00 97.3 F L 64 20 144/80 97 10/31/22 15:30 98.2 F 59 L 101/51 98 10/31/22 15:08 98.4 F 132 H 20 102/69 99 10/31/22 14:35 112 H 20 107/65 99 10/31/22 13:05 128 H 20 100/58 99 10/31/22 11:09 97.8 F 139 H 20 139/96 95 Intake and Output 10/31/22 11/01/22 11/01/22 22:59 06:59 14:59 Intake Total 430 240 Balance 430 240 Intake: Oral 430 240 Other: # Voids 1 3 Results 11/01/22 07:16 11/01/22 07:16 Cardiac Enzymes 10/31/22 10/31/22 10/31/22 Range/Units 12:01 12:01 16:26 AST 34 (14-36) U/L Troponin I <0.012 0.022 (0.000-0.034) ng/mL 10/31/22 Range/Units 19:12 AST (14-36) U/L Troponin I 0.024 (0.000-0.034) ng/mL Coagulation 10/31/22 Range/Units 12:01 PT 10.8 (9.0-12.0) sec APTT 25.1 (22.0-30.0) sec CBC 10/31/22 11/01/22 Range/Units 12:01 07:16 WBC 19.4 H 13.1 H (3.8-10.6) k/uL RBC 4.78 4.22 (3.80-5.40) m/uL Hgb 13.5 12.2 (11.4-16.0) gm/dL Hct 40.7 36.6 (34.0-46.0) % Plt Count 173 144 L (150-450) k/uL Comprehensive Metabolic Panel 10/31/22 11/01/22 Range/Units 12:01 07:16 Sodium 134 L 134 L (137-145) mmol/L Potassium 4.0 3.5 (3.5-5.1) mmol/L Chloride 103 102 (98-107) mmol/L Carbon Dioxide 21 L 26 (22-30) mmol/L BUN 20 H 21 H (7-17) mg/dL Creatinine 0.86 1.17 H (0.52-1.04) mg/dL Glucose 157 H 118 H (74-99) mg/dL Calcium 8.8 8.2 L (8.4-10.2) mg/dL AST 34 (14-36) U/L ALT 23 (4-34) U/L Alkaline Phosphatase 83 (38-126) U/L Total Protein 6.3 (6.3-8.2) g/dL Albumin 3.7 (3.5-5.0) g/dL Current Medications Generic Name Dose Route Start Last Admin Trade Name Freq PRN Reason Stop Dose Admin Acetaminophen 650 mg 10/31/22 15:27 11/01/22 08:37 Acetaminophen Tab 325 Mg Tab PO 650 mg Q6H PRN Administration Pain Apixaban 5 mg 10/31/22 21:00 11/01/22 08:37 Apixaban 5 Mg Tab PO 5 mg BID ESVIN Administration Protocol Aspirin 325 mg 11/01/22 09:00 11/01/22 08:37 Aspirin 325 Mg Tab PO 325 mg DAILY ESVIN Administration Atorvastatin Calcium 40 mg 10/31/22 21:00 10/31/22 21:47 Atorvastatin 40 Mg Tab PO 40 mg HS ESVIN Administration Diltiazem HCl 125 mg/ Sodium 125 mls @ 5 mls/hr 10/31/22 12:30 10/31/22 12:11 Chloride IV 5 mg/hr .Q24H ESVIN 5 mls/hr Administration 5 MG/HR Levofloxacin 750 mg/ IV 150 mls @ 100 mls/hr 11/01/22 14:00 Solution IVPB Q24H [facility] Protocol Ceftriaxone Sodium 2 gm/ 50 mls @ 100 mls/hr 11/01/22 09:00 11/01/22 08:36 Sodium Chloride IVPB 100 mls/hr Q24HR ESV[facility] Administration Protocol Metoprolol Tartrate 25 mg 10/31/22 15:28 11/01/22 08:37 Metoprolol Tartrate 25 Mg Tab PO 25 mg DAILY ESVIN Administration Nitroglycerin 0.4 mg 10/31/22 14:14 Nitroglycerin Sl Tabs 0.4 Mg Tab SUBLINGUAL Q5M PRN Chest Pain Oxybutynin Chloride 10 mg 11/01/22 09:00 11/01/22 08:44 Oxybutynin 10 Mg Tab.Er.24 PO 10 mg DAILY ESVIN Administration Intake and Output 10/31/22 11/01/22 11/01/22 22:59 06:59 14:59 Intake Total 430 240 Balance 430 240 Intake: Oral 430 240 Other: # Voids 1 3 11/01/22 07:16 11/01/22 07:16
[2022-11-01] MEDS: VALSARTAN 160 MG TAB PO SCH (10:15)
[2022-11-01] MEDS: hydroCHLOROthiazide 25 MG TAB PO SCH (10:15)
[2022-11-01 13:05] LABS: Chol/HDL Ratio 2.68 Ratio; LDL Cholesterol,Calculated 60.7 mg/dL (0.0-131.0); VLDL Calculation 15.08 mg/dL (5.00-40.00)
--- NOTE | 2022-11-01 13:23 | P.GSCN ---
History of Present Illness Consult date: 11/01/22 Reason for Consult: Right renal calculi, hematuria Requesting physician: Rajwinder Darby History of present illness: The patient is a 72-year-old white female with a history of urolithiasis 15 years ago. She experienced gross hematuria in August 2022. CT scan shows a 17 mm right renal pelvic calculus, with no hydronephrosis. This is presumed to be the source of the hematuria. She denies any prior history of UTIs. She underwent right ureteroscopy with laser lithotripsy in 10/29/2022. Her calculus fragmented very well. She felt good the following day, but yesterday she developed gross hematuria and tachycardia related to her atrial fibrillation. She presented to the ER and was admitted. Urinalysis showed evidence of hematuria. KUB x-ray shows that the proximal end of the right ureteral stent stent has migrated slightly into the right proximal ureter. She reports minimal discomfort at this time. Review of Systems - Constitutional Denies chills, Denies fever - Genitourinary Genitourinary: Reports flank pain, Reports hematuria, Reports kidney stones Past Medical History Past Medical History: Atrial Fibrillation, Hyperlipidemia, Hypertension Additional Past Medical History / Comment(s): kidney stones History of Any Multi-Drug Resistant Organisms: None Reported Past Surgical History: Appendectomy, Back Surgery, Tubal Ligation Additional Past Surgical History / Comment(s): NASAL SURGERY, Past Anesthesia/Blood Transfusion Reactions: No Reported Reaction Past Psychological History: No Psychological Hx Reported Past Alcohol Use History: Rare Past Drug Use History: None Reported - Past Family History Mother Family Medical History: No Reported History Medications and Allergies Home Medications Medication Instructions Recorded Confirmed Type Acetaminophen Tab [Tylenol Tab] 650 mg PO Q6H PRN 02/19/16 10/31/22 History Apixaban [Eliquis] 5 mg PO BID 10/26/22 10/31/22 History Atorvastatin [Lipitor] 40 mg PO HS 10/26/22 10/31/22 History Calcium(Unk) 1 tab PO DAILY 10/26/22 10/31/22 History Metoprolol Tartrate 25 mg PO DAILY 10/26/22 10/31/22 History Valsartan/Hydrochlorothiazide 1 tab PO DAILY 10/26/22 10/31/22 History [Valsartan-Hctz 320-25 mg Tab] Vit D(Unk) 1 tab PO DAILY 10/26/22 10/31/22 History Zinc(Unk) 1 tab PO DAILY 10/26/22 10/31/22 History Tolterodine ER [Detrol LA] 4 mg PO DAILY #30 cap 10/29/22 10/31/22 Rx Allergies Allergy/AdvReac Type Severity Reaction Status Date / Time azithromycin Allergy Swelling Verified 10/31/22 15:23 [From Zithromax Z-Maciel] Penicillins Allergy Swelling Verified 10/31/22 15:23 OF TONGUE Surgical - Exam Vital Signs Temp Pulse Resp BP Pulse Ox 97.8 F 139 H 20 139/96 95 10/31/22 11:09 10/31/22 11:09 10/31/22 11:09 10/31/22 11:09 10/31/22 11:09 - General well developed, well nourished, no distress - Respiratory normal respiratory effort - Abdomen Abdomen: soft, non tender, no guarding, no rigid, no rebound - Psychiatric oriented to time, oriented to person, oriented to place, speech is normal, memory intact Results - Labs 11/01/22 07:16 11/01/22 07:16 Abnormal Lab Results - Last 24 Hours (Table) 10/31/22 10/31/22 10/31/22 Range/Units 12:01 12:01 13:28 WBC 19.4 H (3.8-10.6) k/uL Neutrophils # 17.4 H (1.3-7.7) k/uL Lymphocytes # 0.6 L (1.0-4.8) k/uL Monocytes # 1.2 H (0-1.0) k/uL Sodium 134 L (137-145) mmol/L Carbon Dioxide 21 L (22-30) mmol/L BUN 20 H (7-17) mg/dL Glucose 157 H (74-99) mg/dL Urine Appearance Bloody H (Clear) Urine RBC >182 H (0-5) /hpf Urine WBC 87 H (0-5) /hpf Diabetes panel 10/31/22 Range/Units 12:01 Sodium 134 L (137-145) mmol/L Potassium 4.0 (3.5-5.1) mmol/L Chloride 103 (98-107) mmol/L Carbon Dioxide 21 L (22-30) mmol/L BUN 20 H (7-17) mg/dL Creatinine 0.86 (0.52-1.04) mg/dL Glucose 157 H (74-99) mg/dL Calcium 8.8 (8.4-10.2) mg/dL AST 34 (14-36) U/L ALT 23 (4-34) U/L Alkaline Phosphatase 83 (38-126) U/L Total Protein 6.3 (6.3-8.2) g/dL Albumin 3.7 (3.5-5.0) g/dL Thyroid panel 10/31/22 Range/Units 12:01 TSH 1.350 (0.465-4.680) mIU/L Calcium panel 10/31/22 Range/Units 12:01 Calcium 8.8 (8.4-10.2) mg/dL Albumin 3.7 (3.5-5.0) g/dL Pituitary panel 10/31/22 Range/Units 12:01 Sodium 134 L (137-145) mmol/L Potassium 4.0 (3.5-5.1) mmol/L Chloride 103 (98-107) mmol/L Carbon Dioxide 21 L (22-30) mmol/L BUN 20 H (7-17) mg/dL Creatinine 0.86 (0.52-1.04) mg/dL Glucose 157 H (74-99) mg/dL Calcium 8.8 (8.4-10.2) mg/dL TSH 1.350 (0.465-4.680) mIU/L Adrenal panel 10/31/22 Range/Units 12:01 Sodium 134 L (137-145) mmol/L Potassium 4.0 (3.5-5.1) mmol/L Chloride 103 (98-107) mmol/L Carbon Dioxide 21 L (22-30) mmol/L BUN 20 H (7-17) mg/dL Creatinine 0.86 (0.52-1.04) mg/dL Glucose 157 H (74-99) mg/dL Calcium 8.8 (8.4-10.2) mg/dL Total Bilirubin 1.3 (0.2-1.3) mg/dL AST 34 (14-36) U/L ALT 23 (4-34) U/L Alkaline Phosphatase 83 (38-126) U/L Total Protein 6.3 (6.3-8.2) g/dL Albumin 3.7 (3.5-5.0) g/dL - Imaging Abdominal x-ray: report reviewed, image reviewed Assessment and Plan (1) Calculus of kidney Current Visit: No Status: Acute Code(s): N20.0 - CALCULUS OF KIDNEY SNOMED Code(s): 87059733 Plan: The patient is admitted primarily for treatment of her atrial fibrillation. I do not believe the slight distal migration of her right ureteral stent is a concern. No calculi are seen on the KUB x-ray, though the kidney is somewhat obscured by gas. Rather than perform a secondary ureteroscopic procedure, I intend to remove her ureteral stent the week of 11/09/2022.
[2022-11-01] MEDS ORDERED: HYDROcodone/APAP 5-325MG 1 EACH TAB PO PRN ×2 (13:25)
[2022-11-01] MEDS ORDERED: LEVOFLOXACIN 750MG-D5W PMX 750 MG in DEXTROSE/WATER 1 150ML.BAG IVPB SCH (14:00)
[2022-11-01] MEDS: polyethylene glycoL 3350 17 GM POWD.PACK PO SCH (17:50)
[2022-11-01] MEDS: ATORVASTATIN 40 MG TAB PO SCH (21:19)
[2022-11-01] MEDS: APIXABAN 2.5 MG TABLET PO SCH (21:19)
--- NOTE | 2022-11-02 00:43 | P.PN ---
Subjective Progress Note Date: 11/01/22 Patient is a 72-year-old female with a known history of cystoscopy right ureteroscopy with laser lithotripsy and right ureteral stent placement on 10/29/2022, paroxysmal atrial fibrillation on anticoagulation with Eliquis, hypertension, hyperlipidemia presents to ER with complaints of heart racing or fast today. Patient did take her medications and waited for about 2 and half hours and her symptoms not getting better. Patient presented to ER for evaluation. Patient is also mildly short of breath. No complaints of fever or chills. No chest pain. No leg swelling. Denies any dizziness or lighthea dedness. Patient is also complaining of suprapubic discomfort and otherwise denies any fever or chills. Denies any dysuria. Patient noted to have blood in the urine. Chest x-ray showed mild pulmonary vascular congestion. EKG showed atrial fibrillation tach ventricular rate with heart rate 135 KUB x-ray showed right ureteral stent, straightening when compared to 10/29/2022 fluoroscopy. Laboratory data showed WBC 19.4 hemoglobin 13.5 and platelets 173 Sodium 134 potassium 4.0 chloride 103 bicarb is 21 BUN 20 and creatinine 0.86 and blood sugar is 157 Troponin x3 negative No new onset elevated TSH level is 1.350 Urinalysis showed bloody with greater than 180 RBCs and WBCs. 11/01/2022 Patient is currently lying in the bed. Awake alert and oriented x3. No complaints of chest pain or shortness of breath. Currently sinus rhythm. Complains of lower back pain. Patient also states that she passed blood clot in the urine. Urine is clearing up. Patient was started back on home blood pressure medications and metoprolol dose increased to twice daily. Patient is on antibiotics in the form of ceftriaxone. Urine culture is pending. Laboratory data showed WBC improved to 13.1 hemoglobin 12.1 platelets 144, sodium 134 potassium 3.5 chloride 102 bicarb is 26 BUN 21 creatinine 1.17 and calcium 8.2. LDL 60.7. Neurology and cardiology is on board. Current medications reviewed. Objective - Vital Signs Vital signs: Vital Signs Temp 98.0 F 11/01/22 11:35 Pulse 73 11/01/22 13:00 Resp 14 11/01/22 13:00 BP 183/76 11/01/22 11:35 Pulse Ox 96 11/01/22 13:02 FiO2 Intake & Output 10/31/22 11/01/22 11/01/22 18:59 06:59 18:59 Intake Total 180.083 250 680 Output Total 136 Balance 44.083 250 680 Weight 97.069 kg Intake: Intake, IV Titration 0.083 200 Amount Diltiazem 125 mg In 0.083 Sodium Chloride 0.9% 100 ml @ 5 MG/HR 5 mls/hr IV .Q24H [facility] Rx#:[id number] Levofloxacin 750Mg-D5w 150 Pmx 750 mg In Dextrose/ Water 1 150ml.bag @ 100 mls/hr IVPB ON[facility] Rx#: [id number] cefTRIAXone 2 gm In 50 Sodium Chloride 0.9% 50 ml @ 100 mls/hr IVPB Q24HR [facility] Rx#:[id number] Oral 180 250 480 Output: Post Void Residual 136 Other: Voiding Method Toilet # Voids 3 2 - Exam PHYSICAL EXAMINATION: Patient is lying in the bed comfortably, no acute distress, awake alert and oriented.. HEENT: Normocephalic. Neck is supple. Pupils reactive. Nostrils clear. Oral cavity is moist. Neck reveals no JVD, carotid bruits, or thyromegaly. CHEST EXAMINATION: Trachea is central. Symmetrical expansion. Lung delgado clear to auscultation and percussion. CARDIAC: Normal S1, S2 with no gallops. No murmurs. Irregularly irregular rhythm. ABDOMEN: Soft. Bowel sounds present. Nontender. No organomegaly. No abdominal bruits. Extremities: reveal no edema. No clubbing or cyanosis Neurologically awake, alert, oriented x3 with well-coordinated movements. No focal deficits noted Skin: No rash or skin lesions. Psychiatric: Coperative. Nonsuicidal, Musculoskeletal: No joint swelling or deformity. Normal range of motion.. - Labs CBC & Chem 7: 11/01/22 07:16 11/01/22 07:16 Labs: Abnormal Lab Results - Last 24 Hours (Table) 11/01/22 11/01/22 Range/Units 07:16 07:16 WBC 13.1 H (3.8-10.6) k/uL Plt Count 144 L (150-450) k/uL Neutrophils # 10.6 H (1.3-7.7) k/uL Monocytes # 1.2 H (0-1.0) k/uL Sodium 134 L (137-145) mmol/L BUN 21 H (7-17) mg/dL Creatinine 1.17 H (0.52-1.04) mg/dL Glucose 118 H (74-99) mg/dL Calcium 8.2 L (8.4-10.2) mg/dL Assessment and Plan Assessment: Paroxysmal atrial fibrillation with rapid ventricular rate.Rate controlled. Patient is converted to sinus rhythm. Right ureteroscopy with laser lithotripsy and right ureteral stent placement on 10/29/2022 Hematuria secondary to above. Resolved. Suprapubic abdominal discomfort. Hypertension Hyperlipidemia DVT prophylaxis. Patient is already on Eliquis. Plan: Continue telemetry monitoring. Cardizem drip has been discontinued. Metoprolol dose increased to 25 mg twice daily. Continue with antibiotics ceftriaxone and follow-up final culture report. Leukocytosis improving. Continue to monitor hemoglobin. Hematuria resolving. Continue with pain management. Urology recommends to follow-up as an outpatient for stent removal next week. Cardiology is on board. Anticipate discharge in the next 24 hours with more clinical improvement. Time with Patient: Greater than 30
[2022-11-02] MEDS: METOPROLOL TARTRATE 25 MG TAB PO SCH ×2 (07:30→21:41)
[2022-11-02 08:27] LABS: Basophils % (A) 0 %; Eosinophils # (A) 0.1 k/uL (0-0.7); Eosinophils % (A) 1 %; HGB 13.6 gm/dL (11.4-16.0); Lymphocytes # (A) 1.2 k/uL (1.0-4.8); Lymphocytes % (A) 9 %; MCH 28.7 pg (25.0-35.0); MCHC 33.1 g/dL (31.0-37.0); MCV 86.7 fL (80.0-100.0); Mean Platelet Volume 10.6; Monocytes # (A) 1.2 k/uL (0-1.0); Monocytes % (A) 9 %; Neutrophils % (A) 80 %; Platelet Count 170 k/uL (150-450); RBC 4.73 m/uL (3.80-5.40); RDW 13.8 % (11.5-15.5); WBC 13.8 k/uL (3.8-10.6)
[2022-11-02] MEDS: APIXABAN 2.5 MG TABLET PO SCH ×2 (08:39→21:41)
[2022-11-02] MEDS: DILTIAZEM 125 MG in SODIUM CHLORIDE 0.9% 100 ML IV SCH ×3 (08:39→21:40)
[2022-11-02] MEDS: hydroCHLOROthiazide 25 MG TAB PO SCH (08:40)
[2022-11-02] MEDS: polyethylene glycoL 3350 17 GM POWD.PACK PO SCH (08:40)
[2022-11-02] MEDS: OXYBUTYNIN 10 MG TAB.ER.24 PO SCH (08:40)
[2022-11-02] MEDS: VALSARTAN 160 MG TAB PO SCH (08:40)
[2022-11-02 08:48] LABS: African American GFR (CKD) 46 (>60 ml/min/1.73 sqM); Anion Gap 7 mmol/L; Blood Urea Nitrogen 19 mg/dL (7-17); Calcium 8.6 mg/dL (8.4-10.2); Carbon Dioxide 26 mmol/L (22-30); Chloride 101 mmol/L (98-107); Glucose 114 mg/dL (74-99); Non-African American GFR(CKD) 40 (>60 ml/min/1.73 sqM); Potassium 3.5 mmol/L (3.5-5.1); Sodium 134 mmol/L (137-145)
--- NOTE | 2022-11-02 13:11 | P.PN ---
Subjective Progress Note Date: 11/02/22 Principal diagnosis: Right renal calculus The patient reports minimal discomfort which she attributes to the right ureteral stent. She denies flank pain. She did experience back pain to the left of the midline yesterday, which has resolved. She denies dysuria. Objective - Vital Signs Vital signs: Vital Signs Temp 98.3 F 11/02/22 08:35 Pulse 59 L 11/02/22 11:35 Resp 18 11/02/22 11:35 BP 94/62 11/02/22 11:35 Pulse Ox 94 L 11/02/22 11:35 FiO2 Intake & Output 11/01/22 11/02/22 11/02/22 18:59 06:59 18:59 Intake Total 680 700 13.75 Balance 680 700 13.75 Intake: Intake, IV Titration 200 13.75 Amount Diltiazem 125 mg In 13.75 Sodium Chloride 0.9% 100 ml @ 10 MG/HR 10 mls/hr IV .[id number] [facility] Rx#: [id number] Levofloxacin 750Mg-D5w 150 Pmx 750 mg In Dextrose/ Water 1 150ml.bag @ 100 mls/hr IVPB ONCE [facility] Rx#: [id number] cefTRIAXone 2 gm In 50 Sodium Chloride 0.9% 50 ml @ 100 mls/hr IVPB Q24HR [facility] Rx#:[id number] Oral 480 700 Other: Voiding Method Toilet Toilet Toilet # Voids 2 2 - Constitutional General appearance: Present: average body habitus, no acute distress - Psychiatric Psychiatric: Present: A&O x's 3 - Labs CBC & Chem 7: 11/02/22 07:42 11/02/22 07:42 Labs: Abnormal Lab Results - Last 24 Hours (Table) 11/02/22 11/02/22 Range/Units 07:42 07:42 WBC 13.8 H (3.8-10.6) k/uL Neutrophils # 11.0 H (1.3-7.7) k/uL Monocytes # 1.2 H (0-1.0) k/uL Sodium 134 L (137-145) mmol/L BUN 19 H (7-17) mg/dL Creatinine 1.36 H (0.52-1.04) mg/dL Glucose 114 H (74-99) mg/dL Microbiology - Last 24 Hours (Table) 10/31/22 13:28 Urine Culture - Final Urine,Voided Assessment and Plan (1) Calculus of kidney Current Visit: No Status: Acute Code(s): N20.0 - CALCULUS OF KIDNEY SNOMED Code(s): 10691330 Plan: Management of atrial fibrillation per cardiology. The patient is urologically stable for discharge. Rather than perform a secondary ureteroscopic procedure, I intend to remove her ureteral stent the week of 11/09/2022. Time with Patient: Less than 30
--- NOTE | 2022-11-02 13:23 | CA ---
Transthoracic Echo Report Name: Haley Guevara Age: 72 Gender: F : 1950 Exam Date: 11/02/2022 10:35 Exam Location: [facility] Ht (in): 63 Wt (lb): 214 Ordering Physician: Petey Yeung MD ([id number]) Attending/Referring Phys: [employer] Adf Developer May Breaux [facility] Procedure CPT: Indications: afib rvr Cardiac Hx: Technical Quality: Contrast 1: Total Dose (mL): Contrast 2: Total Dose (mL): MEASUREMENTS (Male / Female) Normal Values 2D ECHO LV Diastolic Diameter PLAX 4.8 cm 4.2 - 5.9 / 3.9 - 5.3 cm LV Systolic Diameter PLAX 3.2 cm IVS Diastolic Thickness 0.7 cm 0.6 - 1.0 / 0.6 - 0.9 cm LVPW Diastolic Thickness 1.0 cm 0.6 - 1.0 / 0.6 - 0.9 cm LV Relative Wall Thickness 0.4 LVOT Diameter 2.0 cm Ascending Aorta Diameter 3.3 cm M-MODE Aortic Root Diameter MM 2.3 cm LA Systolic Diameter MM 3.7 cm LA Ao Ratio MM 1.6 AV Cusp Separation MM 1.5 cm DOPPLER AV Peak Velocity 188.1 cm/s AV Peak Gradient 14.2 mmHg AV Mean Velocity 125.4 cm/s AV Mean Gradient 7.1 mmHg AV Velocity Time Integral 34.3 cm LVOT Peak Velocity 138.9 cm/s LVOT Peak Gradient 7.7 mmHg LVOT Velocity Time Integral 30.8 cm LVOT Stroke Volume 96.7 cm??? LVOT Stroke Volume Index 48.6 ml/m??? AV Area Cont Eq vti 2.8 cm??? AV Area Cont Eq pk 2.3 cm??? Mitral E Point Velocity 89.4 cm/s Mitral A Point Velocity 81.6 cm/s Mitral E to A Ratio 1.1 MV Deceleration Time 153.3 ms LV E' Lateral Velocity 9.2 cm/s Mitral E to LV E' Lateral Ratio 9.8 LV E' Septal Velocity 7.3 cm/s Mitral E to LV E' Septal Ratio 12.3 TR Peak Velocity 211.2 cm/s TR Peak Gradient 18.3 mmHg Right Atrial Pressure 8.0 mmHg Pulmonary Artery Systolic Pressu 25.8 mmHg Right Ventricular Systolic Press 25.8 mmHg FINDINGS Left Ventricle Normal Left ventricular size, wall thickness, systolic function with no obvious regional wall motion abnormalities. Left ventricular ejection fraction is estimated at 55-60%. Right Ventricle Mild right ventricular dilatation. Mildly reduced right ventricular global systolic function. Right Atrium Normal right atrial size. Left Atrium Mild left atrial dilatation. Mitral Valve Structurally normal mitral valve. Trace mitral regurgitation. Aortic Valve Trileaflet aortic valve. No aortic valve stenosis or regurgitation. Tricuspid Valve Structurally normal tricuspid valve. Mild tricuspid regurgitation. Pulmonic Valve Structurally normal pulmonic valve. Mild pulmonic regurgitation. Pericardium No pericardial effusion. Aorta Normal size aortic root and proximal ascending aorta. CONCLUSIONS Left ventricular ejection fraction 55-60% Trace mitral regurgitation Mild tricuspid regurgitation RVSP 25 Previewed by: Dr. Silas Pierre DO (Electronically Signed) Final Date: 02 November 2022 13:22
--- NOTE | 2022-11-02 13:58 | P.PN ---
Subjective Progress Note Date: 11/02/22 The patient is a 72-year-old female patient with a past medical history significant for hypertension and dyslipidemia and paroxysmal atrial fibrillation presented to the hospital complaining of heart racing and fluttering. On October 30 she underwent cystoscopy with right ureteral stent insertion and lithotripsy therapy. 2 days after she was in her usual state of health until she started experiencing symptoms of heart racing and fluttering associated with dizziness unlike in this but no presyncope or syncope and no symptoms of chest pain or chest discomfort or shortness of breath. She presented to the hospital where an EKG was performed and showed atrial fibrillation with RVR. Subsequently the p atient was converted to normal sinus mechanism. She was receiving at home metoprolol tartrate and she stated that she has been compliant with the medication and also she has been compliant with oral anticoagulation. The workup during this admission showed UTI and currently the patient is on antibi otic. Also she has been experiencing symptoms of hematuria. For some reason anti-she is on aspirin 325 mg by mouth daily. The first EKG showed A. fib with RVR and the second EKG showed normal sinus mechanism and the patient has been maintaining normal sinus mechanism. When she presented to the hospital her pressure has been elevated and consistent with hypertension crisis. She stated that she has been compliant with her valsartan as well. 11/02 Patient is seen today in follow-up. She went back into A. fib with RVR and 150 bpm. She received her metoprolol tartrate early this morning without improvement of her heart rate. Eliquis has been decreased to 2.5 mg due to hematuria. Stress Echocardiogram performed in the office 12/2021 revealed mildly positive response to dobutamine infusion. Normal stress echo with no evidence of stress- induced ischemia. Echocardiogram 09/2021 performed in the office revealed normal EF, mild to moderate MR, mild TR Echocardiogram performed 11/02/2022 revealed EF of 5560 percent, trace mitral regurgitation, mild tricuspid regurgitation, RVSP 25. The examination is remarkable for regular rhythm with clear breathing sounds bilaterally and no lower extremity edema noted. The abdomen is soft and nontender Assessment Status post lithotripsy for kidney stone along with cystoscopy and right ureteral stent insertion Hematuria. Likely to be triggered by the urinary procedure Atrial fibrillation with RVR. The patient converted to normal sinus mechanism. The patient is known to have paroxysmal atrial fibrillation for Hypertension emergency Plan DC aspirin Continued decreased dose of eliquis due to hematuria Continue metoprolol at 25 mg twice daily Restart the patient back on the home blood pressure medication including valsartan Start patient on Cardizem drip 10 mg. Monitor patient overnight Plan is to suppress atrial fibrillation and patient may need to go on additional medications which will be decided tomorrow. Follow-up with the patient At the time of discharge, patient will follow with Dr. Warner in the office in one week. Impression and plan of care have been directed as dictated by the signing physician. Barbie Fernández nurse practitioner acting as scribe for signing physician. Objective - Vital Signs Vital signs: Vital Signs Temp 98.5 F 11/02/22 04:00 Pulse 62 11/02/22 04:00 Resp 20 11/02/22 04:00 BP 143/80 11/02/22 04:00 Pulse Ox 94 L 11/02/22 04:00 FiO2 Intake & Output 11/01/22 11/02/22 11/02/22 18:59 06:59 18:59 Intake Total 680 700 Balance 680 700 Intake: Intake, IV Titration 200 Amount Levofloxacin 750Mg-D5w 150 Pmx 750 mg In Dextrose/ Water 1 150ml.bag @ 100 mls/hr IVPB ONCE [facility] Rx#: [id number] cefTRIAXone 2 gm In 50 Sodium Chloride 0.9% 50 ml @ 100 mls/hr IVPB Q24HR [facility] Rx#:[id number] Oral 480 700 Other: Voiding Method Toilet Toilet # Voids 2 2 - Labs CBC & Chem 7: 11/02/22 07:42 11/02/22 07:42 Labs: Abnormal Lab Results - Last 24 Hours (Table) 11/01/22 Range/Units 07:16 Sodium 134 L (137-145) mmol/L BUN 21 H (7-17) mg/dL Creatinine 1.17 H (0.52-1.04) mg/dL Glucose 118 H (74-99) mg/dL Calcium 8.2 L (8.4-10.2) mg/dL Microbiology - Last 24 Hours (Table) 10/31/22 13:28 Urine Culture - Final Urine,Voided
[2022-11-02] MEDS: ATORVASTATIN 40 MG TAB PO SCH (21:41)
--- NOTE | 2022-11-02 23:22 | PN ---
PROGRESS NOTE DATE OF SERVICE: 11/02/2022 SUBJECTIVE: This 72-year-old woman who was admitted with paroxysmal atrial fibrillation converted to normal sinus rhythm. Patient also had recently had right ureteroscopy with laser lithotripsy. No chest pain. No palpitations. No fever. PHYSICAL EXAMINATION: VITAL SIGNS: Pulse is 64, blood pressure 90/58, respiratory rate 17. CHEST: Clear to auscultation. CARDIOVASCULAR: S1 and S2, regular. ABDOMEN: Soft. LABORATORY DATA: Noted. ASSESSMENT: 1. Paroxysmal atrial fibrillation with rapid ventricular rate converted to sinus rhythm. 2. Right ureteroscopy with laser lithotripsy recently. 3. Hematuria. 4. Suprapubic abdominal discomfort. 5. Hypertension. 6. Hyperlipidemia. 7. Multiple medical issues. RECOMMENDATIONS: Recommend to continue current medications, continue symptomatic treatment. Recommend repeat labs in the morning. Closely follow with Cardiology. Guarded prognosis. Further recommendations to follow. Recommended followup labs with primary physician after discharge. MMODL / IJN: [id number] /
[2022-11-03] MEDS: OXYBUTYNIN 10 MG TAB.ER.24 PO SCH (08:14)
[2022-11-03] MEDS: METOPROLOL TARTRATE 25 MG TAB PO SCH (08:14)
[2022-11-03] MEDS: hydroCHLOROthiazide 25 MG TAB PO SCH (08:14)
[2022-11-03] MEDS: VALSARTAN 160 MG TAB PO SCH (08:14)
[2022-11-03] MEDS: polyethylene glycoL 3350 17 GM POWD.PACK PO SCH (08:14)
[2022-11-03] MEDS: APIXABAN 2.5 MG TABLET PO SCH (08:14)
[2022-11-03 08:18] LABS: Basophils % (A) 0 %; Eosinophils # (A) 0.3 k/uL (0-0.7); Eosinophils % (A) 3 %; HCT 37.8 % (34.0-46.0); HGB 12.6 gm/dL (11.4-16.0); Lymphocytes # (A) 1.2 k/uL (1.0-4.8); Lymphocytes % (A) 11 %; MCH 28.8 pg (25.0-35.0); MCHC 33.3 g/dL (31.0-37.0); MCV 86.4 fL (80.0-100.0); Mean Platelet Volume 10.8; Monocytes # (A) 0.9 k/uL (0-1.0); Monocytes % (A) 8 %; Neutrophils # (A) 8.7 k/uL (1.3-7.7); Neutrophils % (A) 78 %; Platelet Count 174 k/uL (150-450); RBC 4.38 m/uL (3.80-5.40); RDW 13.8 % (11.5-15.5); WBC 11.1 k/uL (3.8-10.6)
[2022-11-03 08:31] LABS: African American GFR (CKD) 44 (>60 ml/min/1.73 sqM); Anion Gap 4 mmol/L; Blood Urea Nitrogen 21 mg/dL (7-17); Calcium 8.2 mg/dL (8.4-10.2); Carbon Dioxide 30 mmol/L (22-30); Chloride 100 mmol/L (98-107); Glucose 140 mg/dL (74-99); Non-African American GFR(CKD) 39 (>60 ml/min/1.73 sqM); Potassium 3.8 mmol/L (3.5-5.1); Sodium 134 mmol/L (137-145)
[2022-11-03 09:26] VITALS: TEMP 97.6
[2022-11-03] MEDS: DILTIAZEM 125 MG in SODIUM CHLORIDE 0.9% 100 ML IV SCH (11:12)
[2022-11-03 11:59] VITALS: BP 112/70; PULSE 60; RESP 16
[2022-11-03] MEDS ORDERED: LEVOFLOXACIN 750MG-D5W PMX 750 MG in DEXTROSE/WATER 1 150ML.BAG IVPB SCH (12:00)
--- NOTE | 2022-11-03 13:57 | CDI ---
Documentation Clarification Form Date: 11/03/2022 01:05:56 PM From: Martine Vazquez RN, CCDS Admit Date: 10/31/2022 02:15:00 PM Patient Name: Haley Guevara Visit Number: [id number] Discharge Date: ATTENTION: The Clinical Documentation Specialists (CDI) and [facility] Coding Staff appreciate your assistance in clarifying documentation. Please respond to the clarification below the line at the bottom and electronically sign. The CDI & [facility] Coding staff will review the response and follow-up if needed. Please note: Queries are made part of the Legal Health Record. If you have any questions, please contact the author of this message via ITS. Dr. Rajwinder Darby Urinary tract infection is documented in the cardiology consult on 11/01/2022, but not in the attending H/P or progress notes. Additional clarification is requested. History/Risk Factors: AFIB, HTN Hyperlipidemia Clinical Indicators: 72-year-old female present with symptoms of heart racing and fluttering associated with dizziness. EKG was performed and showed atrial fibrillation with RVR. She also has symptoms of hematuria. 10/31 VS: 139/96 139 20 97.8 95 % RA 10/31 Labs: WBC 19.4 She is on ASA 325 mg by mouth daily. Eliquis, 5 mg po bid. 10/31 KUB: Right ureteral stent has migraine with pigtail now straightened with compared to 10/29/2022 fluoroscopy. 10/31 Urine Appearance: Bloody, Urine WBC 87 10/31 Urine Culture: -Final: No Growth after 18 hours 11/01 Urology consult: calculus of kidney. I do not believe the slight distal migration of her right ureteral stent is a concern. No calculi are seen on the KUB x-ray. I intent to remove her ureteral stent the week of 11/09/2022. Treatment: Rocephin 2 Gm IVPB Q 24 HRS 11/01-11/03 Levaquin 750 MG IVPB Once 10/31 .9 NS 500 MLS Bolus 10/31 Please clarify if Urinary tract infection is a valid diagnosis? [ ] Yes, Urinary tract infection is present as evidence by (additional clinical support): [ ] No, Urinary tract infection is ruled out. [ ] Other (please specify diagnosis) [ ] Unable to determine (Template Last Revised: July 2020) Yes, Urinary tract infection is present as evidence by (additional clinical support) ABNORMALURINE, SUPRAPUBIC DISCOMFORT MTDD
--- NOTE | 2022-11-03 14:33 | P.PN ---
Subjective Progress Note Date: 11/03/22 The patient is a 72-year-old female patient with a past medical history significant for hypertension and dyslipidemia and paroxysmal atrial fibrillation presented to the hospital complaining of heart racing and fluttering. On October 30 she underwent cystoscopy with right ureteral stent insertion and lithotripsy therapy. 2 days after she was in her usual state of health until she started experiencing symptoms of heart racing and fluttering associated with dizziness unlike in this but no presyncope or syncope and no symptoms of chest pain or chest discomfort or shortness of breath. She presented to the hospital where an EKG was performed and showed atrial fibrillation with RVR. Subsequently the p atient was converted to normal sinus mechanism. She was receiving at home metoprolol tartrate and she stated that she has been compliant with the medication and also she has been compliant with oral anticoagulation. The workup during this admission showed UTI and currently the patient is on antibi otic. Also she has been experiencing symptoms of hematuria. For some reason anti-she is on aspirin 325 mg by mouth daily. The first EKG showed A. fib with RVR and the second EKG showed normal sinus mechanism and the patient has been maintaining normal sinus mechanism. When she presented to the hospital her pressure has been elevated and consistent with hypertension crisis. She stated that she has been compliant with her valsartan as well. 11/02 Patient is seen today in follow-up. She went back into A. fib with RVR and 150 bpm. She received her metoprolol tartrate early this morning without improvement of her heart rate. Eliquis has been decreased to 2.5 mg due to hematuria. Stress Echocardiogram performed in the office 12/2021 revealed mildly positive response to dobutamine infusion. Normal stress echo with no evidence of stress- induced ischemia. Echocardiogram 09/2021 performed in the office revealed normal EF, mild to moderate MR, mild TR Echocardiogram performed 11/02/2022 revealed EF of 5560 percent, trace mitral regurgitation, mild tricuspid regurgitation, RVSP 25. 11/03 Patient is seen today in follow-up. She did convert to sinus rhythm. She is currently on a lower dose of eliquis due to hematuria. Patient understands that once the hematuria is cleared, she will go back on the 5 mg twice daily. Regarding atrial fibrillation. Dr. Andrade as recommended atrial fibrillation ablation once bleeding is controlled in approximately 3 months. Patient is cleared for discharge home today and may follow up with Dr. Warner in the office and she will have a follow-up with Dr. Andrade for further evaluation for ablation The examination is remarkable for regular rhythm with clear breathing sounds bilaterally and no lower extremity edema noted. The abdomen is soft and nontender Assessment Status post lithotripsy for kidney stone along with cystoscopy and right ur eteral stent insertion Hematuria. Likely to be triggered by the urinary procedure Atrial fibrillation with RVR. The patient converted to normal sinus mechanism. The patient is known to have paroxysmal atrial fibrillation for Hypertension emergency Plan DC aspirin Continued decreased dose of eliquis due to hematuria Continue metoprolol at 25 mg twice daily At the time of discharge, patient will follow with Dr. Warner in the office in one week. Impression and plan of care have been directed as dictated by the signing physician. Barbie Fernández nurse practitioner acting as scribe for signing physician. Objective - Vital Signs Vital signs: Vital Signs Temp 97.6 F 11/03/22 08:05 Pulse 69 11/03/22 08:05 Resp 17 11/03/22 08:05 BP 112/71 11/03/22 08:05 Pulse Ox 93 L 11/03/22 08:05 FiO2 Intake & Output 11/02/22 11/03/22 11/03/22 18:59 06:59 18:59 Intake Total 193.75 480 Balance 193.75 480 Intake: Intake, IV Titration 13.75 Amount Diltiazem 125 mg In 13.75 Sodium Chloride 0.9% 100 ml @ 10 MG/HR 10 mls/hr IV .[id number] [facility] Rx#: [id number] Oral 180 480 Other: Voiding Method Toilet Toilet Toilet # Voids 3 - Labs CBC & Chem 7: 11/03/22 07:58 11/03/22 07:58 Labs: Abnormal Lab Results - Last 24 Hours (Table) 11/03/22 11/03/22 Range/Units 07:58 07:58 WBC 11.1 H (3.8-10.6) k/uL Neutrophils # 8.7 H (1.3-7.7) k/uL Sodium 134 L (137-145) mmol/L BUN 21 H (7-17) mg/dL Creatinine 1.39 H (0.52-1.04) mg/dL Glucose 140 H (74-99) mg/dL Calcium 8.2 L (8.4-10.2) mg/dL
--- NOTE | 2022-11-04 14:11 | P.DS ---
Providers Date of admission: 10/31/22 14:15 Expected date of discharge: 11/04/22 Attending physician: Rajwinder Darby Consults: 10/31/22 14:14 Consult Physician Urgent Consulting Provider: Jose Carlos Brooke Consult Reason/Comments: Urinary tract infection post procedure Do you want consulting provider notified?: Yes 10/31/22 14:15 Consult Physician Urgent Consulting Provider: [facility] Consult Reason/Comments: A. fib with rapid ventricular response Do you want consulting provider notified?: Yes Primary care physician: Oliver Swanson Hospital Course: Final diagnosis Paroxysmal atrial fibrillation with rapid ventricular rate converted to sinus rhythm Recent right ureteroscopy with laser lithotripsy Hematuria, improved secondary to above Suprapubic abdominal discomfort Acute urinary tract infection, present on admission with abnormal urinalysis and suprapubic discomfort Hypertension history Hyperlipidemia history GI prophylaxis DVT prophylaxis Discharge disposition Patient is being discharged in a stable condition with guarded prognosis to home. Patient will follow-up with Dr. SWANSON in the outpatient setting upon discharge. Patient is to follow-up with cardiology as well as urology outpatient as scheduled. Total time taken is greater than 35 minutes. Hospital course This is a 72-year-old female who was recently admitted with atrial fibrillation with RVR being closely monitored on telemetry monitoring with cardiology following. Patient was placed on Cardizem drip and has since converted. Patient also being evaluated by urology as patient recently underwent right ureteroscopy with laser lithotripsy urology recommends close outpatient follow- up in the next 1 week. Patient continue on antibiotics in the form of oral Ceftin 500 mg twice daily for the next 3 days to complete a course. Patient has been cleared by consultations for discharge. Please refer to consultation notes for further HPI. Currently no reports of chest pain, shortness of breath, or palpitations. Patient is afebrile. No reports of nausea or vomiting and patient is tolerating diet. Patient will be discharged home today. guarded prognosis. Physical exam: Gen: This is a 72-year-old female who is awake, alert and oriented 3, well- developed, well-nourished, obese HEENT: Head is atraumatic, normocephalic. Pupils equal, round. Sclerae is anicteric. NECK: Supple. No JVD. No lymphadenopathy. No thyromegaly. LUNGS: Diminished breath sounds bilaterally with some scattered rhonchi. No intercostal retractions. HEART: S1, S2 are muffled ABDOMEN: Soft. Obese. Bowel sounds are present. No masses. No tenderness. EXTREMITIES: No pedal edema. No calf tenderness. NEUROLOGICAL: Patient is awake, alert and oriented x3. Cranial nerves 2 through 12 are grossly intact. Please refer to medication reconciliation sheet for a list of medications. The impression and plan of care has been dictated by Clarisa Trejo, Nurse Practitioner as directed. Dr. Wilner MD I have performed a history and examination and MDM of this patient, discussed the same with the dictator, and agree with the dictator's assessment and plan as written ,documented as a scribe. Based on total visit time, I have performed more than 50% of the visit. Patient Condition at Discharge: Fair Plan - Discharge Summary Discharge Rx Participant: Yes New Discharge Prescriptions: New cefUROXime axetiL [Ceftin] 500 mg PO BID 3 Days #6 tab polyethylene glycoL 3350 [Miralax] 17 gm PO DAILY #30 packet Apixaban [Eliquis] 2.5 mg PO BID 30 Days #60 tab Metoprolol Tartrate [Lopressor] 25 mg PO BID 30 Days #60 tab Continue Acetaminophen Tab [Tylenol] 650 mg PO Q6H PRN PRN Reason: Pain Calcium(Unk) 1 tab PO DAILY Atorvastatin [Lipitor] 40 mg PO HS Vit D(Unk) 1 tab PO DAILY Zinc(Unk) 1 tab PO DAILY Valsartan/Hydrochlorothiazide [Valsartan-Hctz 320-25 mg Tab] 1 tab PO DAILY Tolterodine ER [Detrol LA] 4 mg PO DAILY #30 cap Discontinued Apixaban [Eliquis] 5 mg PO BID Metoprolol Tartrate 25 mg PO DAILY Discharge Medication List Acetaminophen Tab [Tylenol] 650 mg PO Q6H PRN 02/19/16 [History] Atorvastatin [Lipitor] 40 mg PO HS 10/26/22 [History] Calcium(Unk) 1 tab PO DAILY 10/26/22 [History] Valsartan/Hydrochlorothiazide [Valsartan-Hctz 320-25 mg Tab] 1 tab PO DAILY 10/26/22 [History] Vit D(Unk) 1 tab PO DAILY 10/26/22 [History] Zinc(Unk) 1 tab PO DAILY 10/26/22 [History] Tolterodine ER [Detrol LA] 4 mg PO DAILY #30 cap 10/29/22 [Rx] Apixaban [Eliquis] 2.5 mg PO BID 30 Days #60 tab 11/03/22 [Rx] Metoprolol Tartrate [Lopressor] 25 mg PO BID 30 Days #60 tab 11/03/22 [Rx] cefUROXime axetiL [Ceftin] 500 mg PO BID 3 Days #6 tab 11/03/22 [Rx] polyethylene glycoL 3350 [Miralax] 17 gm PO DAILY #30 packet 11/03/22 [Rx] Follow up Appointment(s)/Referral(s): Sabine Warner MD [STAFF PHYSICIAN] - 1 Week (call office to make appointment.) Jose Carlos Brooke MD [STAFF PHYSICIAN] - 1 Week (call office to make appointment.) Oliver Swanson MD [Primary Care Provider] - 1-2 days (call office to make appointment.) Patient Instructions/Handouts: A-fib (Atrial Fibrillation) (GEN), Urinary Tract Infection in Women (GEN) Activity/Diet/Wound Care/Special Instructions: Activity Limited until follow-up Follow-up with primary care provider on discharge Follow-up with cardiology outpatient Follow-up with Dr. Brooke in 1 week for office cystoscopy with stent removal. Discharge Disposition: HOME SELF-CARE
--- NOTE | 2022-11-09 09:45 | CDI ---
Documentation Clarification Form Date: 11/09/2022 09:26:30 AM From: Martine Vazquez RN, CCDS Admit Date: 10/31/2022 02:15:00 PM Patient Name: Haley Guevara Visit Number: [id number] Discharge Date: 11/03/2022 02:03:00 PM ATTENTION: The Clinical Documentation Specialists (CDI) and [facility] Coding Staff appreciate your assistance in clarifying documentation. Please respond to the clarification below the line at the bottom and electronically sign. The CDI & [facility] Coding staff will review the response and follow-up if needed. Please note: Queries are made part of the Legal Health Record. If you have any questions, please contact the author of this message via ITS. Dr. Jose Carlos Brooke UTI is documented in the progress notes on 11/03/22 and the patient had a cystoscopy right ureteroscopy with laser lithotripsy and right ureteral stent placement on 10/29/2022. Additional clarification regarding the etiology of the UTI is requested. History/Risk Factors: AFIB, HTN Hyperlipidemia, Urolithiasis Clinical Indicators: 72-year-old female present with symptoms of heart racing and fluttering associated with dizziness. EKG was performed and showed atrial fibrillation with RVR. She also has symptoms of hematuria and suprapubic abdominal discomfort. 10/31 VS: 139/96 139 20 97.8 95 % RA 10/31 Labs: WBC 19.4 She is on ASA 325 mg by mouth daily. Eliquis, 5 mg po bid. 10/31 KUB: Right ureteral stent has migraine with pigtail now straightened with compared to 10/29/2022 fluoroscopy. 10/31 Urinalysis: Bloody, Urine WBC 87 Urine culture: Final: No Growth after 18 hours 11/01 Urology consult: calculus of kidney. I do not believe the slight distal migration of her right ureteral stent is a concern. No calculi are seen on the KUB x-ray. I intent to remove her ureteral stent the week of 11/09/2022. Treatment: Rocephin 2 Gm IVPB Q 24 HRS 11/01-11/03 Levaquin 750 MG IVPB Once 10/31 .9 NS 500 MLS Bolus 10/31 Please clarify the etiology of the UTI, if known: [ ] Ureteroscopy, Right Ureteral Stent [ ] UTI not related to Ureteroscopy, Right Ureteral Stent [ X ] Other condition, please specify: Negative urine culture consistent with absence of UTI [ ] Unable to determine (Template Last Revised: July 2020) MTDD
--- NOTE | 2022-11-11 08:47 | CDI ---
Documentation Clarification Form Date: 11/11/2022 08:20:24 AM From: Martine Vazquez RN,CCDS Admit Date: 10/31/2022 02:15:00 PM Patient Name: Haley Guevara Visit Number: [id number] Discharge Date: 11/03/2022 02:03:00 PM ATTENTION: The Clinical Documentation Specialists (CDI) and [facility] Coding Staff appreciate your assistance in clarifying documentation. Please respond to the clarification below the line at the bottom and electronically sign. The CDI & [facility] Coding staff will review the response and follow-up if needed. Please note: Queries are made part of the Legal Health Record. If you have any questions, please contact the author of this message via ITS. Dr. Rajwinder Darby Conflicting documentation has been found in the medical record. As attending physician, please provide clarification. 11/03 Attending response clarification of UTI: Yes, Urinary tract infection is present as evidence by abnormal urine, suprapubic discomfort. 11/09 Urology response to clarification regarding the etiology of the UTI: Other condition, please specify: Negative urine culture consistent with the absence of UTI. History/Risk Factors: AFIB, HTN, Hyperlipidemia Clinical Indicators: 72-year-old female present with symptoms of heart racing and fluttering associated with dizziness. She also has symptoms of hematuria. 10/31 VS: 139/96 139 20 97.8 95 % RA 10/31 Labs: WBC 19.4 10/31 KUB: Right ureteral stent has migraine with pigtail now straightened with compared to 10/29/2022 fluoroscopy. 10/31 Urine Appearance: Bloody, Urine WBC 87 10/31 Urine Culture: -Final: No Growth after 18 hours Treatment: Rocephin 2 Gm IVPB Q 24 HRS 11/01-11/03 Levaquin 750 MG IVPB Once 10/31 .9 NS 500 MLS Bolus 10/31 Please clarify which diagnosis is most appropriate: [x ] UTI Ruled In [ ] UTI Ruled Out [ ] Other (please specify) [ ] Unable to determine (Template Last Revised: July 2020) MTDD
== END 2022-11-03 14:03 | disposition home or self-care (01) | DRG 309 ==
LOC: EC 10:43 → 3SCARD 14:15
PROVIDERS: ADMIT Hospitalist; ATTEND Hospitalist
DX: I48.0 Paroxysmal atrial fibrillation (principal); I16.1 Hypertensive emergency; N39.0 Urinary tract infection, site not specified; E78.5 Hyperlipidemia, unspecified; R31.0 Gross hematuria; I34.0 Nonrheumatic mitral (valve) insufficiency; I10 Essential (primary) hypertension; Z88.0 Allergy status to penicillin; Z88.1 Allergy status to other antibiotic agents; Z79.899 Other long term (current) drug therapy; Z79.82 Long term (current) use of aspirin; Z79.01 Long term (current) use of anticoagulants; Z87.442 Personal history of urinary calculi
CPT/HCPCS: 36415; 71046; 74018; 80048; 80053; 80061; 81001; 83735; 84443; 84484; 85025; 85610; 85730; 87086; 93005; 93306; 94760; 96365; 96366; 96367; 96368; 99285

== ENCOUNTER → 2022-12-18 | Outpatient (CLI) | payer MEDICARE ==
--- NOTE | 2022-12-21 16:17 | MM ---
Reason for Exam: Screening (asymptomatic). Last mammogram was performed 3 year(s) and 0 month(s) ago. Patient History: Menarche at age 15. First Full-Term at age 23. Postmenopausal. Patient used Hormonal Contraceptives for 10 years. Risk Values: Ange 5 year model risk: 1.5%. NCI Lifetime model risk: 4.5%. Prior Study Comparison: 01/04/2020 Bilateral Screening Mammogram, [facility]. 01/17/2020 Bilateral Diagnostic Ultrasound, [facility]. Tissue Density: There are scattered fibroglandular densities. Findings: Analyzed By CAD. Pattern appears symmetrical and stable. There is a new nodule within the posterior lateral right breast measuring 5 mm located 12 cm from the nipple 9:00 position. Additional workup of this area is recommended. Ultrasound could be performed. Diagnostic imaging may be required. Left breast: There are grouped heterogenous calcifications within the outer left breast middle 9:00 position. Magnification views are recommended. Overall Assessment: Incomplete: need additional imaging evaluation, BI-RAD 0 Management: Diagnostic Breast Ultrasound of the right breast. Diagnostic Mammogram of both breasts. A negative mammogram report should not preclude additional follow up of suspicious palpable abnormalities. Patient should continue monthly self breast exam. A clinical breast exam by your physician is recommended on an annual basis and results should be correlated with mammographic findings. Electronically signed and approved by: Chris Jeff D.O. Radiologis
== END | disposition home or self-care (01) ==
LOC: RADMAMWWP 14:57
PROVIDERS: ATTEND Family Medicine
DX: Z12.31 Encounter for screening mammogram for malignant neoplasm of breast (principal); Z78.0 Asymptomatic menopausal state
CPT/HCPCS: 77063; 77067

== ENCOUNTER → 2022-12-18 | Outpatient (CLI) | payer MEDICARE ==
--- NOTE | 2022-12-18 16:57 | US ---
EXAMINATION TYPE: US kidneys/renal and bladder DATE OF EXAM: 12/18/2022 COMPARISON: CLINICAL INDICATION: Female, 72 years old with history of N20.0 CALCULUS OF KIDNEY; Patient states basilio ving right calculus blasted x beginning of November EXAM MEASUREMENTS: Right Kidney: 10.5 x 4.8 x 4.3 cm Left Kidney: 10.3 x 3.8 x 4.4 cm Suboptimal visualization due to ultrasound penetration Right Kidney: Upper pole echogenic focus with shadowing = 0.8 cm Left Kidney: upper pole cystic appearing lesion in renal sinus = 1.9 x 2.0 x 1.7 cm Bladder: distended, anechoic Bilateral Jets not seen There is no evidence for hydronephrosis at this point in time. Left renal sinus cyst measuring up to 2.0 cm. No left renal calculi identified. Shadowing right upper pole 0.8 similar calculus. No masses are identified. The urinary bladder is anechoic. Bilateral ureteral jets are not seen. IMPRESSION: Limited examination due to underpenetration. 1. No evidence for hydronephrosis. 2. Nonobstructive right renal calculus. 3. Left renal sinus cyst.
== END | disposition home or self-care (01) ==
LOC: RADUSWWP 14:55
PROVIDERS: ATTEND Urology
DX: N20.0 Calculus of kidney (principal); N28.1 Cyst of kidney, acquired
CPT/HCPCS: 76770

== ENCOUNTER → 2022-12-18 | Outpatient (CLI) | payer MEDICARE ==
--- NOTE | 2022-12-18 17:09 | XR ---
EXAMINATION TYPE: XR KUB DATE OF EXAM: 12/18/2022 Comparison: 10/31/2022 Clinical History: 72-year-old female N20.0 CALCULUS OF KIDNEY Findings: 3 mm calcification right mid abdomen likely within the upper pole the right kidney. Removal of the pa tient's previous right-sided ureteral stent. Phleboliths within the pelvis. Nonobstructive bowel gas pattern. Scattered mild stool. Impression: 3 mm right renal calculus. Nonobstructive bowel gas pattern. Removal of the patient's previous right ureteral stent.
== END | disposition home or self-care (01) ==
LOC: RADXRMAIN 14:50
PROVIDERS: ATTEND Urology
DX: N20.0 Calculus of kidney (principal)
CPT/HCPCS: 74018

== ENCOUNTER → 2022-12-30 | Outpatient (CLI) | payer MEDICARE ==
--- NOTE | 2022-12-30 12:46 | USB ---
Reason for Exam: Additional evaluation requested from abnormal screening. Patient History: Menarche at age 15. First Full-Term at age 23. Postmenopausal. Patient used Hormonal Contraceptives for 10 years. Risk Values: Ange 5 year model risk: 1.5%. NCI Lifetime model risk: 4.5%. Technique: Method: Targeted. Prior Study Comparison: 01/04/2020 Bilateral Screening Mammogram, [facility]. 12/18/2022 Bilateral MG 3D screening mammo w/cad, [facility]. Findings: The lateral section of the breast of the right breast, the axilla of the right breast and the retroareolar of the right breast were scanned. There is a 0.3 x 0.2 x 0.5 cm hypoechoic area. During portion of the study this has posterior wall enhancement. Through-transmission not well identified. Under harmonics his peers anechoic. Findings are likely a very small cyst. This cannot be classified completely simple cyst. Short-term follow-up can be performed.There is a 0.3 x 0.2 x 0.5 cm hypoechoic area. During portion of the study this has posterior wall enhancement. Through-transmission not well identified. Under harmonics his peers anechoic. Findings are likely a very small cyst. This cannot be classified completely simple cyst. Short-term follow-up can be performed. Please also see mammographic report suspicious calcifications left breast. Overall Assessment: Probably benign, BI-RAD 3 Management: Stereotactic Core Biopsy of the left breast. Diagnostic Breast Ultrasound of the right breast in 6 months. A clinical breast exam by your physician is recommended on an annual basis and results should be correlated with mammographic findings. This exam should not preclude additional follow-up of suspicious palpable abnormalities. Results were given to the patient verbally at the time of exam. Electronically signed and approved by: Chris Jeff D.O. Radiologis
--- NOTE | 2022-12-30 12:50 | MM ---
Reason for Exam: Additional evaluation requested from prior study. Last screening mammogram was performed less than 1 month ago. Patient History: Menarche at age 15. First Full-Term at age 23. Postmenopausal. Patient used Hormonal Contraceptives for 10 years. Risk Values: Ange 5 year model risk: 1.5%. NCI Lifetime model risk: 4.5%. Prior Study Comparison: 01/04/2020 Bilateral Screening Mammogram, [facility]. 12/18/2022 Bilateral MG 3D screening mammo w/cad, [facility]. Tissue Density: There are scattered fibroglandular densities. Findings: Analyzed By CAD. There is persistence of the small nodular density lower outer aspect posterior right breast. There is grouped heterogenous calcifications within the lower outer aspect mid left breast. These appear suspicious on magnification compression. Stereotactic core biopsy is recommended. Right breast nodularity may correlate with the suspected small cyst by ultrasound. Overall Assessment: Suspicious, BI-RAD 4 Management: Stereotactic Core Biopsy of the left breast. A negative mammogram report should not preclude additional follow up of suspicious palpable abnormalities. Patient should continue monthly self breast exam. A clinical breast exam by your physician is recommended on an annual basis and results should be correlated with mammographic findings. Electronically signed and approved by: Chris Jeff D.O. Radiologis
== END | disposition home or self-care (01) ==
LOC: RADMAMWWP 09:46
PROVIDERS: ATTEND Family Medicine
DX: R92.8 Other abnormal and inconclusive findings on diagnostic imaging of breast (principal); Z78.0 Asymptomatic menopausal state
CPT/HCPCS: 77066; 76642; G0279; 77062

== ENCOUNTER → 2023-01-21 | Day surgery (SDC) | payer MEDICARE ==
--- NOTE | 2023-01-27 09:02 | MM ---
Risk Values: Ange 5 year model risk: 1.5%. NCI Lifetime model risk: 4.5%. Prior Study Comparison: 01/04/2020 Bilateral Screening Mammogram, [facility]. 12/18/2022 Bilateral MG 3D screening mammo w/cad, [facility]. 12/30/2022 Bilateral MG 3D work up w/cad GUILLERMO, [facility]. Pathology Description: Location: upper outer quadrant. Marker Left Behind. Approach: Lateral to Medial Needle Type: Eviva Cores: 6 Skin Nicks: 1 Gauge: 9 The procedure of stereotactic guided core biopsy was explained to the patient. Benefits, alternatives, and risks were discussed. An informed consent was then obtained. The [facility] pathway for biopsy was chosen. Shortness pathway was a lateral approach. I performed the localization, followed by the remainder of the procedure. A vacuum assisted biopsy gun was used to obtain 6 core samples. The patient tolerated the procedure well without any immediate complication. The patient was kept in the radiology department for short stay after the procedure and then discharged home in stable condition. Targeted calcifications are identified in specimen mammogram. Post biopsy mammogram shows the clip to appear in satisfactory position relative to the targeted area of concern on the preprocedure images. Impression: SUCCESSFUL, UNCOMPLICATED STEREOTACTIC GUIDED CORE BIOPSY OF 2:00 LEFT BREAST MICROCALCIFICATIONS. Pathology Results: Result: Benign, Fibroadenomatoid hyperplasia. LEFT BREAST, STEREOTACTIC NEEDLE CORE BIOPSY: Fibroadenomatoid hyperplasia with calcifications and background fibrocystic changes. Overall Assessment: Benign Management: Diagnostic Mammogram of the left breast in 6 months. Electronically signed and approved by: Saji Malik M.D. Radiologist
== END ==
LOC: RADMAMWWP 09:44
PROVIDERS: ATTEND Family Medicine
DX: N62 Hypertrophy of breast (principal)
CPT/HCPCS: 88305; 19081; A4648

== ENCOUNTER → 2023-10-25 | Outpatient (CLI) | payer MEDICARE ==
--- NOTE | 2023-10-26 07:42 | BD ---
EXAMINATION TYPE: Axial Bone Density DATE OF EXAM: 10/25/2023 CLINICAL HISTORY: 73 years old Female. ICD-10 CODE: Z78.0 POST MENOPAUSAL Height: 5 ft 2 in Weight: 209 FRAX RISK QUESTIONS: Alcohol (3 or more units per day): no Family History (Parent hip fracture): no Glucocorticoids (More than 3mos): no (Ex: prednisone, prednisolone, methylprednisolone, dexamethasone, and hydrocortisone). History of Fracture in Adulthood: no Secondary Osteoporosis: 1. Type 1 Diabetes: no 2. Hyperthyroidism: no 3. Menopause before 45: no 4. Malnutrition: no 5. Chronic liver disease: no Rheumatoid Arthritis: no Current Tobacco Use: yes RISK FACTORS HISTORY OF: Surgery to Spine/Hip(right/left)/Wrist (right/left): lumbar surg/ When: 2013 MEDICATIONS: Thyroid Medications: none Osteoporosis Medications: none EXAM MEASUREMENTS: Bone mineral densitometry was performed using the [employer] System. Bone mineral density as measured about the Lumbar spine is: ----- L1-L4(G/cm2): 1.084 T Score Values are as follows: ----- L1: -1.2 ----- L2: -1.9 ----- L3: -0.5 ----- L4: 0.1 ----- L1-L4: -0.8 Z Score Values are as follows: ----- L1: -0.5 ----- L2: -1.2 ----- L3: 0.2 ----- L4: 0.8 ----- L1-L4: -0.1 baseline Bone mineral density about the R hip (g/cm2): 0.753 Bone mineral density about the L hip (g/cm2): 0.726 T Score values are as follows: -----R Neck: -2.1 -----L Neck: -2.2 -----R Total: -2.1 -----L Total: -1.9 Z Score values are as follows: -----R Neck: -0.9 -----L Neck: -1.1 -----R Total: -1.2 -----L Total: -1.1 baseline FRAX%s: The graph provided illustrates a 12.3 % chance for a major osteoporotic fx and a 2.8 % chance for the hips probability for fx in 10 years time. IMPRESSION: Osteopenia (T Score between -2.5 and -1). There is slightly increased risk of fracture and the patient may be considered for treatment. Re-Screen 2-5 years. NOTE: T-SCORE=SD OF THE YOUNG ADULT MEAN.
--- NOTE | 2023-10-26 10:59 | MM ---
Reason for Exam: Follow-up at short interval from prior study. Last screening mammogram was performed 10 month(s) ago. Patient History: Menarche at age 15. First Full-Term at age 23. Postmenopausal. Previous Hyperplasia w/o Atypia at age 72. Patient used Hormonal Contraceptives for 10 years. 01/21/2023, Benign MG stereo VAD BX LT on the left side. Risk Values: Ange 5 year model risk: 1.8%. NCI Lifetime model risk: 5.1%. Tissue Density: There are scattered areas of fibroglandular density. Findings: Analyzed By CAD. No evidence for mass or distortion. Microclip marker left breast. No suspicious microcalcifications evident. Overall Assessment: Negative, BI-RAD 1 Management: Screening Mammogram of both breasts in 1 year. . Results were given to the patient verbally at the time of exam. Patient should continue monthly self-breast exams. A clinical breast exam by your physician is recommended on an annual basis. This exam should not preclude additional follow-up of suspicious palpable abnormalities. Note on Ange scores and lifetime risk: 1. A Ange score greater than 3% is considered moderate risk. If this is the case, consider specialist referral to assess eligibility for a risk reducing agent. 2. If overall lifetime risk for the development of breast cancer is 20% or higher, the patient may qualify for future screening with alternating mammogram and breast MRI. Electronically signed and approved by: Fabio Zarate M.D. Radiologis
== END | disposition home or self-care (01) ==
LOC: RADMAMWWP 14:24
PROVIDERS: ATTEND Family Medicine
DX: R92.323 Mammographic fibroglandular density, bilateral breasts (principal); M85.89 Other specified disorders of bone density and structure, multiple sites; Z78.0 Asymptomatic menopausal state
CPT/HCPCS: 77080; 77066; G0279; 77062

== ENCOUNTER → 2024-03-24 | Outpatient (CLI) | payer MEDICARE | END | disposition home or self-care (01) | LOC: LABWHC1 08:19 | PROVIDERS: ATTEND Family Medicine | DX: R73.03 Prediabetes (principal) | CPT/HCPCS: 36415; 83036 ==

== ENCOUNTER → 2024-08-24 | Outpatient (CLI) | payer MEDICARE | END | disposition home or self-care (01) | LOC: LABWHC1 12:49 | PROVIDERS: ATTEND Family Medicine | DX: E11.9 Type 2 diabetes mellitus without complications (principal) | CPT/HCPCS: 36415; 83036 ==